=== PATIENT | female | born 1960 | race Caucasian/White ===

== ENCOUNTER 2023-10-14 10:37 | Inpatient (IN) | payer MEDICARE, SELFPAY ==
[2023-10-14] VITALS (29 sets, daily range): BP systolic 131–167; BP diastolic 59–90; PULSE 45–90; RESP 13–22; TEMP 36.5–37; O2SAT 85–100; BMI 37.0; BMI 36.9
--- NOTE | ~2023-10-14 | CT_ITS ---
Non-contrast CT scan of the Abdomen and Pelvis Clinical indication: Left flank pain Technique: 2.5 mm axial scans were obtained through the abdomen and pelvis without intravenous or or al contrast. Dose reduction technique was used on this scan by utilizing automated exposure control a nd iterative reconstruction technique. The dose-length product (DLP) was 1445.09 mGy-cm. Findings: Images through the lung bases reveal no abnormalities. There is no evidence of renal or ureteral calculi. The kidneys and the ureters are nondilated. Probable diffuse hepatic steatosis. Gallbladder absent. The spleen, pancreas, and adrenals appear nor mal. There are atherosclerotic calcifications of the aorta. . There is no evidence of bowel obstruction. Images through the pelvis were performed. There is no evidence of ascites or lymphadenopathy. Urinary bladder unremarkable. Status post hysterectomy. No pelvic mass seen. Impression: No acute abnormality seen. Probable diffuse hepatic steatosis. Status post cholecystectomy and hysterectomy. Reviewed, dictated and finalized at [facility]. Impression: No acute abnormality seen. Probable diffuse hepatic steatosis. Status post cholecystectomy and hysterectomy.
--- NOTE | ~2023-10-14 | CT_ITS ---
EXAMINATION: CTA abdomen pelvis DATE: 10/14/2023 14:48 INDICATION: Severe left flank pain; prior 10/14/[address] abdomen pelvis examination TECHNIQUE: Computed tomography (CT) of the abdomen and pelvis was performed with 100 CC Omnipaque 350 intravenous contrast. Automated exposure control and iterative reconstruction technique were employe d. Exam dose: 1393.32 mGy-cm total exam DLP. COMPARISON: None. FINDINGS: 6 x 7 mm right lower lobe pulmonary nodule. No prior imaging studies are available for mukesh flores. Differential diagnosis includes pulmonary granuloma, hamartoma, primary or metastatic pulmona ry malignancy. The lung bases are clear of consolidation. Cardiomegaly. No pericardial effusion. Small sliding hiatal hernia. The gallbladder is absent. No bile duct or pancreatic duct dilatation. Diffuse hepatic steatosis. No hepatic, splenic, pancreatic, and adrenal or renal space occupying mass lesion is noted. There is mild scarring at the posterior lateral inferior pole of the right kidney. No urinary tract calculus or hydroureteronephrosis. The urinary bladder is unremarkable. Status post hysterectomy. The appendix is not seen, likely due to appendectomy. No evidence of bowel obstruction or intraperitoneal free. Small fat-containing umbilical hernia. There is atherosclerotic calcification but no significant stenosis, dissection or aneurysm of the abd ominal aorta. The origins of the celiac and superior mesenteric artery are patent without atheroscler otic calcification or stenosis. There is mild atherosclerotic calcified plaque the origin of the left renal artery. There is mild calcified plaque but no significant stenosis or occlusion of the iliac, common femoral or proximal or femoral arteries. No intraperitoneal or retroperitoneal or pelvic mass lesion or adenopathy or ascites. Moderate thoracic and lumbar spondylosis; no suspicious osteolytic or osteoblastic lesions. IMPRESSION: 6 x 7 mm nonspecific right lower lobe noncalcified pulmonary nodule; differential diagno sis is given above Cardiomegaly Small sliding hiatal hernia Status post cholecystectomy and probable appendectomy Status post hysterectomy Focal scarring, or pole of right kidney Reviewed, dictated and finalized at [facility] Reviewed, dictated and finalized at [facility]. IMPRESSION: 6 x 7 mm nonspecific right lower lobe noncalcified pulmonary nodul e; differential diagnosis is given above Cardiomegaly Small sliding hiatal hernia Status post cholecystectomy and probable appendectomy Status post hysterectomy Focal scarring, or pole of right kidney
--- NOTE | ~2023-10-14 | CT_ITS ---
EXAMINATION: CT abdomen w con DATE: 10/18/2023 16:50 INDICATION: Epigastric abdominal pain. TECHNIQUE: Computed tomography (CT) of the abdomen was performed with 100 mL Omnipaque 350 intravenou s contrast. Automated exposure control and iterative reconstruction technique were employed. The dose -length product was 1026.19 mGy-cm. COMPARISON: CT abdomen and pelvis 10/14/2023 FINDINGS: The visualized portions of the lung bases demonstrate mild atelectasis. No pleural effusion . The heart size is normal. No pericardial effusion. The liver and spleen are normal. The gallbladder is absent. The pancreas and adrenal glands are normal. There is cortical thinning of the kidneys. Th ere are no dilated loops of bowel. The appendix is not visualized. There are no pathologically enlarg ed lymph nodes. There is no free intraperitoneal fluid. There is thoracolumbar dextroscoliosis and mo derate spondylosis. IMPRESSION: 1. No specific etiology for the patient's symptoms. Reviewed, dictated and finalized at [facility].
--- NOTE | 2023-10-14 11:10 | ED.BACK ---
HPI - Back Pain/Injury General Chief Complaint: Back Pain/Injury Stated Complaint: flank pain-N/V Time Seen by Provider: 10/14/23 10:54 History of Present Illness HPI Narrative: 63-year-old female presenting with left flank pain. States that she woke this morning with severe left flank pain that she has never had before. Associated with nausea and vomiting. No dysuria or hematuria. No abdominal pain. No numbness or tingling. No weakness. No further complaints. Related Data Home Medications Medication Instructions Recorded Confirmed amitriptyline 50 mg tablet 50 mg PO HS 10/14/23 10/14/23 promethazine 25 mg tablet 25 mg PO Q6H vomiting 10/14/23 10/14/23 Allergies Allergy/AdvReac Type Severity Reaction Status Date / Time oxycodone AdvReac Mild Vomiting Verified 10/14/23 21:16 Review of Systems Review of Systems: All systems reviewed & are unremarkable except as noted in HPI and below PMFSH Social History Social History Smoking status: Former smoker Additional smoking assessment comments: currently smokes [place] 2x days every day Alcohol intake: never Substance use: current Substance use type: marijuana Do You Feel Safe in your Home?: Yes Lack of Transportation: No Lack of Food: Never True Current Housing: I Have Housing Concerned About Future Housing: No Difficulty Paying Gas/Electric Bills: No Difficulty Paying for Meds: No Currently Unemployed: No Education: High School Diploma/GED Difficulty w/ Childcare or Family Care: No Spiritual care concerns: No Exam Narrative: GENERAL: Distress secondary to pain and nausea HEAD: Normocephalic, atraumatic. EYES: PERRLA and EOMI. ENT: Mucous membranes moist. NECK: Supple. CHEST: Clear to auscultation. No respiratory distress. HEART: Regular rate and rhythm ABDOMEN: Soft, nontender, nondistended; +CVA tenderness EXTREMITIES: Normal range of motion. SKIN: Warm, dry, no rash. NEURO: Alert and oriented x3. PSYCH: Normal mood and affect. Course Vital Signs Vital signs: Vital Signs Temperature 97.7 F 10/14/23 13:14 Respiratory Rate 19 10/14/23 13:14 Blood Pressure 167/89 H 10/14/23 13:14 Pulse Oximetry 97 10/14/23 13:14 Temperature 98.0 F 10/17/23 08:18 Pulse Rate 83 10/17/23 10:17 Respiratory Rate 16 10/17/23 10:17 Blood Pressure 118/88 10/17/23 08:18 Pulse Oximetry 95 10/17/23 10:17 Oxygen Delivery Room Air 10/17/23 10:17 MDM - Back Pain/Injury MDM Narrative Medical decision making narrative: 63-year-old female presenting with left flank pain. Blood work is significant abnormality. Lipase normal. CT without contrast shows no acute abnormalities. Patient continues to complain of severe left flank pain. CTA obtained to evaluate for vascular abnormalities. No acute abnormalities are noted to explain her symptoms. Patient has received 2 doses of Dilaudid and 2 doses of Zofran. She unfortunately continues to have vomiting despite the Zofran. She is unable to tolerate p.o. intake. Requires hospitalization, spoke with the hospitalist who has accepted her for admission. Differential Diagnosis Differential diagnosis: Likely lumbar radiculopathy, sciatica, renal colic, pyelonephritis and other Medical Records Attestation: I reviewed the patient's medical records. Lab Data Attestation: I reviewed the patient's lab results. 10/17/23 05:26 10/17/23 05:26 Labs: Lab Results 10/14/23 10/14/23 10/15/23 Range/Units 11:36 13:32 09:23 WBC 9.5 12.6 H (4.5-10.0) K/mm3 RBC 4.44 4.33 (4.2-5.4) M/mm3 Hgb 13.7 13.2 (12.0-15.0) g/dL Hct 41.0 39.3 (37.0-47.0) % MCV 92.3 90.8 (80-100) fl MCH 30.9 30.5 (26-34) pg MCHC 33.4 33.6 (32-36) g/dl RDW 13.7 13.7 (11.5-14.5) % Plt Count 298 321 (150-375) k/mm3 MPV 10.3 10.5 H (7.4-10.4) fl Immature Gran % (Auto)
[2023-10-14] MEDS: HYDROmorphone HCL INJ (*CRX) 1 MG/ML SYR IV PUSH ×2 (11:18→14:14)
[2023-10-14] MEDS: ONDANSETRON INJ 4 MG/2 ML VIAL IV PUSH ×3 (11:18→19:00)
[2023-10-14] MEDS: SODIUM CHLORIDE 0.9% IV 1,000 ML 999 ML IV CONT ×2 (11:18→14:13)
[2023-10-14 11:41] LABS: Basophils Percent Auto 0.4 % (0.2-1.2); Eosinophils Absolute Auto 0.1 K/mm3 (0-0.3); Eosinophils Percent Auto 1.4 % (0-4.4); Hemoglobin 13.7 g/dL (12.0-15.0); Immature Granulocyte Absolute 0.03 K/mm3 (0.00-0.031); Immature Granulocyte Percent A 0.3 % (0-0.5); Lymphocytes Absolute Auto 1.05 K/mm3 (0.9-3.2); Mean Corpuscular HGB Conc 33.4 g/dl (32-36); Mean Corpuscular Hemoglobin 30.9 pg (26-34); Mean Corpuscular Volume 92.3 fl (80-100); Mean Platelet Volume 10.3 fl (7.4-10.4); Monocytes Absolute Auto 0.6 K/mm3 (0.1-0.6); Monocytes Percent Auto 6.4 % (2.6-8.5); Neutrophils Absolute Auto 7.7 K/mm3 (1.3-6.7); Neutrophils Percent Auto 80.5 % (45.5-73.1); Platelet Count Result 298 k/mm3 (150-375); Red Blood Count 4.44 M/mm3 (4.2-5.4); Red Cell Distribution Width 13.7 % (11.5-14.5); White Blood Count 9.5 K/mm3 (4.5-10.0)
[2023-10-14 11:52] LABS: Alanine Aminotransferase 32 U/L (6-35); Albumin Level 4.5 g/dL (3.5-5.1); Alkaline Phosphatase 92 U/L (38-126); Anion Gap 13 mmol/L (4-12); Aspartate Amino Transferase 30 U/L (14-36); Bilirubin,Total 0.9 mg/dL (0.2-1.3); Blood Urea Nitrogen 18 mg/dL (7-17); Calcium 8.8 mg/dL (8.4-10.2); Carbon Dioxide 19 mmol/L (22-30); Chloride 109 mmol/L (98-107); Estimated CRCL calculation 73 ml/min; Estimated Glomerular Filt Rate > 60; Glucose 166 mg/dL (65-110); Lipase 94 U/L (23-300); Potassium 4.3 mmol/L (3.4-5.0); Sodium 141 mmol/L (137-145)
[2023-10-14 13:52] LABS: Add Urine Microscopic? YES; Appearance Urine Turbid (Clear); Bacteria Urine Rare /hpf; Bilirubin Urine Negative (Negative); Blood Urine Negative (Negative); Color Urine Yellow (Yellow); Glucose Urine UA 1+ mg/dL (Negative); Ketones Urine 1+ mg/dL (Negative); Leukocyte Esterase Ur Negative LEU/UL (Negative); Need Manual Microscopic Reviewed; Nitrate Urine Positive (Negative); Protein Urine 1+ mg/dL (Negative); Specific Grav Ur 1.029 (1.001-1.035); Squamous Epithelial Cell Urine Few /hpf (Few); WBC Urine 0-5 /hpf (0-3)
[2023-10-14] MEDS: KETOROLAC 30 MG/ML VIAL (*BKC) IV PUSH (19:00)
--- NOTE | 2023-10-14 19:19 | ECG_ITS ---
Test Date: 2023-10-14 20:13:48 Measurements Intervals Graham Rate: 63 P: -40 NE: 158 QRS: 30 QRSD: 89 T: 52 QT: 454 QTc: 468 Interpretive Statements SINUS RHYTHM WITH MARKED SINUS ARRHYTHMIA MINOR NONSPECIFIC T-WAVE ABNORMALITY BORDERLINE ECG No previous ECG available for comparison Electronically Signed On 10-15-2023 15:30:04 CDT by Shreyas Qureshi M.D.
[2023-10-14] MEDS: cefTRIAXone 2 GM/NS 100 ML 2 GM/100 ML BAG IVPB (19:38)
[2023-10-14] MEDS: METOCLOPRAMIDE HCL INJ 10 MG/2 ML VIAL IV PUSH (19:38)
[2023-10-14 20:57] LABS: Amphetamine Screen Urine Negative (Negative); Barbiturate Screen Urine Negative (Negative); Benzodiazepines Screen Urine Negative (Negative); Cannabinoid Screen Urine Positive (Negative); Cocaine Screen Urine Negative (Negative); Methadone Screen Urine Negative (Negative); Opiate Screen Urine Positive (Negative); Phencyclidine Screen Urine Negative (Negative)
--- NOTE | 2023-10-14 21:43 | PC.NURSE ---
Pt states that she smoke marijuana two times a day every day.
[2023-10-15 05:27] VITALS: BP 142/76; PULSE 73; RESP 16; TEMP 37.1; O2SAT 97
--- NOTE | 2023-10-15 08:35 | PM.IMHP ---
H&P: HPI History of Present Illness Date/Time: 10/15/23 08:35 Chief Complaint: Nausea vomiting Narrative: Patient is 63-year-old female who presented to the emergency department with intractable nausea and vomiting. Patient states symptoms began yesterday morning and she has been unable to tolerate any oral intake. Patient denied any past medical history however does report she has had this cyclic vomiting in the past ever since her has passed. Patient was positive for opiates and cannabis thus this likely cannabis induced hyperemesis. Patient was to a urinary tract infection CT abdomen showed no acute issues except for a pulmonary nodule which can be followed up in 3 months. Initial labs were unremarkable however follow-up labs showed hypokalemia 2.9 secondary to vomiting and dehydration. Patient was admitted to the medical unit for further evaluation treatment hyper emphasis any UTI. Review of Systems Review of Systems: All systems reviewed & are unremarkable except as noted in HPI and below PMFSH Social History Social History Smoking status: Former smoker Additional smoking assessment comments: currently smokes Flux 2x days every day Alcohol intake: never Substance use: current Substance use type: marijuana Do You Feel Safe in your Home?: Yes Lack of Transportation: No Lack of Food: Never True Current Housing: I Have Housing Concerned About Future Housing: No Difficulty Paying Gas/Electric Bills: No Difficulty Paying for Meds: No Currently Unemployed: No Education: High School Diploma/GED Difficulty w/ Childcare or Family Care: No Spiritual care concerns: No Meds Home Medications and Allergies Home Medications Medication Instructions Recorded Confirmed Type amitriptyline 50 mg tablet 50 mg PO HS 10/14/23 10/14/23 History promethazine 25 mg tablet 25 mg PO Q6H vomiting 10/14/23 10/14/23 History Allergies Allergy/AdvReac Type Severity Reaction Status Date / Time oxycodone AdvReac Mild Vomiting Verified 10/14/23 21:16 Vital Signs Vital Signs - 24 hr 10/14/23 13:14 10/14/23 19:58 10/14/23 20:45 Temperature 97.7 F Pulse Rate 76 90 Respiratory Rate 19 16 18 Blood Pressure 167/89 H 156/59 H 154/87 H Pulse Oximetry 97 95 97 Oxygen Delivery 10/14/23 13:20 10/14/23 13:30 10/14/23 13:31 Temperature Pulse Rate 67 74 77 Respiratory Rate 22 H 19 14 Blood Pressure 131/80 Pulse Oximetry 97 85 L 98 Oxygen Delivery 10/14/23 13:45 10/14/23 14:09 10/14/23 14:13 Temperature Pulse Rate Respiratory Rate 13 Blood Pressure 160/78 H Pulse Oximetry 97 92 Oxygen Delivery 10/14/23 14:15 10/14/23 14:16 10/14/23 14:30 Temperature Pulse Rate Respiratory Rate Blood Pressure 158/72 H Pulse Oximetry 94 94 85 L Oxygen Delivery 10/14/23 14:31 10/14/23 14:52 10/14/23 15:00 Temperature Pulse Rate 71 Respiratory Rate Blood Pressure 167/90 H Pulse Oximetry 85 L 98 94 Oxygen Delivery 10/14/23 15:18 10/14/23 15:23 10/14/23 15:30 Temperature Pulse Rate 67 45 L 57 L Respiratory Rate Blood Pressure 145/82 H Pulse Oximetry 96 99 98 Oxygen Delivery 10/14/23 15:45 10/14/23 16:00 10/14/23 16:15 Temperature Pulse Rate Respiratory Rate Blood Pressure Pulse Oximetry 97 95 100 Oxygen Delivery 10/14/23 19:47 10/14/23 20:00 10/14/23 20:01 Temperature Pulse Rate Respiratory Rate Blood Pressure 152/77 H Pulse Oximetry 100 97 96 Oxygen Delivery 10/14/23 20:15 10/14/23 20:16 10/14/23 20:30 Temperature Pulse Rate Respiratory Rate Blood Pressure 147/76 H Pulse Oximetry 100 100 100 Oxygen Delivery 10/14/23 20:31 10/14/23 21:37 10/14/23 21:42 Temperature 98.6 F Pulse Rate 66 Respiratory Rate 18 Blood Pressure 154/87 H 156/75 H Pulse Oximetry 97 98
[2023-10-15] MEDS: ONDANSETRON INJ 4 MG/2 ML VIAL IV PUSH (09:10)
[2023-10-15] MEDS: PANTOPRAZOLE SODIUM IV 40 MG VIAL IV PUSH ×2 (09:10→21:20)
[2023-10-15] MEDS: ENOXAPARIN 40 MG/0.4 ML SYRINGE SUB-Q (09:11)
[2023-10-15] MEDS: SODIUM CHLORIDE 0.9% IV 1,000 ML 100 ML IV CONT (09:11)
[2023-10-15 09:42] LABS: Basophils Percent Auto 0.1 % (0.2-1.2); Hematocrit 39.3 % (37.0-47.0); Hemoglobin 13.2 g/dL (12.0-15.0); Immature Granulocyte Absolute 0.07 K/mm3 (0.00-0.031); Immature Granulocyte Percent A 0.6 % (0-0.5); Lymphocytes Absolute Auto 0.89 K/mm3 (0.9-3.2); Lymphocytes Percent Auto 7.1 % (18.3-44.2); Mean Corpuscular HGB Conc 33.6 g/dl (32-36); Mean Corpuscular Hemoglobin 30.5 pg (26-34); Mean Corpuscular Volume 90.8 fl (80-100); Mean Platelet Volume 10.5 fl (7.4-10.4); Monocytes Absolute Auto 0.8 K/mm3 (0.1-0.6); Monocytes Percent Auto 6.4 % (2.6-8.5); Neutrophils Absolute Auto 10.8 K/mm3 (1.3-6.7); Neutrophils Percent Auto 85.8 % (45.5-73.1); Platelet Count Result 321 k/mm3 (150-375); Red Blood Count 4.33 M/mm3 (4.2-5.4); Red Cell Distribution Width 13.7 % (11.5-14.5); White Blood Count 12.6 K/mm3 (4.5-10.0)
[2023-10-15 09:52] LABS: Alanine Aminotransferase 38 U/L (6-35); Albumin Level 4.6 g/dL (3.5-5.1); Alkaline Phosphatase 101 U/L (38-126); Anion Gap 11 mmol/L (4-12); Aspartate Amino Transferase 31 U/L (14-36); Bilirubin,Total 0.6 mg/dL (0.2-1.3); Blood Urea Nitrogen 19 mg/dL (7-17); Calcium 9.1 mg/dL (8.4-10.2); Carbon Dioxide 32 mmol/L (22-30); Chloride 97 mmol/L (98-107); Estimated CRCL calculation 74 ml/min; Estimated Glomerular Filt Rate > 60; Glucose 149 mg/dL (65-110); Potassium 2.9 mmol/L (3.4-5.0); Sodium 140 mmol/L (137-145)
[2023-10-15] MEDS: POTASSIUM CHLORIDE INJ 40 MEQ in SODIUM CHLORIDE 0.9% IV 500 ML 90 MEQ IVPB (10:54)
[2023-10-15] MEDS: diphenhydrAMINE HCl INJ 50 MG/ML VIAL IV PUSH (10:55)
[2023-10-15] MEDS: HALOPERIDOL LACTATE 5 MG/ML VIAL 2.5 MG IV PUSH (10:55)
[2023-10-15 10:59] LABS: Magnesium 1.9 mg/dL (1.6-2.3)
[2023-10-15 14:00] VITALS: BP 148/76; PULSE 78; RESP 16; TEMP 36.4; O2SAT 95
[2023-10-15] MEDS: KCL 40 MEQ/0.9% SOD CHL 1,000 ML 100 ML IV CONT (16:43)
[2023-10-15] MEDS: ACETAMINOPHEN 325 MG TABLET 650 MG PO ×2 (17:58→22:01)
[2023-10-15 20:34] VITALS: BP 122/65; PULSE 73; RESP 16; TEMP 36.8; O2SAT 93
[2023-10-15] MEDS: AMITRIPTYLINE HCL 25 MG TABLET 50 MG PO (21:21)
[2023-10-15] MEDS: ONDANSETRON INJ 4 MG/2 ML VIAL 8 MG IV PUSH (22:02)
[2023-10-16 05:06] VITALS: BP 164/84; PULSE 68; RESP 18; TEMP 36.1; O2SAT 93
[2023-10-16] MEDS: LORazepam INJ (*CRX) 2 MG/ML VIAL 1 MG IV PUSH (05:28)
[2023-10-16 05:51] LABS: Basophils Percent Auto 0.2 % (0.2-1.2); Eosinophils Percent Auto 0.1 % (0-4.4); Hematocrit 38.9 % (37.0-47.0); Hemoglobin 13.1 g/dL (12.0-15.0); Immature Granulocyte Absolute 0.13 K/mm3 (0.00-0.031); Immature Granulocyte Percent A 1.1 % (0-0.5); Lymphocytes Absolute Auto 1.17 K/mm3 (0.9-3.2); Lymphocytes Percent Auto 10.1 % (18.3-44.2); Mean Corpuscular HGB Conc 33.7 g/dl (32-36); Mean Corpuscular Hemoglobin 31.1 pg (26-34); Mean Corpuscular Volume 92.4 fl (80-100); Mean Platelet Volume 10.6 fl (7.4-10.4); Monocytes Absolute Auto 0.9 K/mm3 (0.1-0.6); Monocytes Percent Auto 8.1 % (2.6-8.5); Neutrophils Absolute Auto 9.3 K/mm3 (1.3-6.7); Neutrophils Percent Auto 80.4 % (45.5-73.1); Platelet Count Result 268 k/mm3 (150-375); Red Blood Count 4.21 M/mm3 (4.2-5.4); Red Cell Distribution Width 13.8 % (11.5-14.5); White Blood Count 11.6 K/mm3 (4.5-10.0)
[2023-10-16 06:10] LABS: Alanine Aminotransferase 44 U/L (6-35); Albumin Level 4.1 g/dL (3.5-5.1); Alkaline Phosphatase 84 U/L (38-126); Anion Gap 10 mmol/L (4-12); Aspartate Amino Transferase 39 U/L (14-36); Bilirubin,Total 0.6 mg/dL (0.2-1.3); Blood Urea Nitrogen 13 mg/dL (7-17); Calcium 8.7 mg/dL (8.4-10.2); Carbon Dioxide 27 mmol/L (22-30); Chloride 97 mmol/L (98-107); Estimated CRCL calculation 84 ml/min; Estimated Glomerular Filt Rate > 60; Glucose 141 mg/dL (65-110); Potassium 3.3 mmol/L (3.4-5.0); Sodium 134 mmol/L (137-145)
[2023-10-16] MEDS: ENOXAPARIN 40 MG/0.4 ML SYRINGE SUB-Q (08:44)
[2023-10-16] MEDS: amLODIPine BESYLATE 5 MG TABLET PO (08:44)
[2023-10-16] MEDS: ACETAMINOPHEN 325 MG TABLET 650 MG PO (08:44)
[2023-10-16] MEDS: PANTOPRAZOLE SODIUM IV 40 MG VIAL IV PUSH ×2 (08:44→21:01)
[2023-10-16] MEDS: POTASSIUM CHLORIDE INJ 40 MEQ in SODIUM CHLORIDE 0.9% IV 500 ML 130 MEQ IVPB (08:45)
--- NOTE | 2023-10-16 12:13 | P.PNIM_ITS ---
Progress Note: A&P Assessment and Plan (1) Cannabis hyperemesis syndrome concurrent with and due to cannabis abuse: Code(s): F12.188 - Cannabis abuse with other cannabis-induced disorder Status: Acute (2) UTI (urinary tract infection): Code(s): N39.0 - Urinary tract infection, site not specified Status: Acute (3) Lung nodule seen on imaging study: Code(s): R91.1 - Solitary pulmonary nodule Status: Acute (4) Hypokalemia: Code(s): E87.6 - Hypokalemia Status: Acute (5) Sciatic leg pain: Code(s): M54.30 - Sciatica, unspecified side Status: Acute Plan Hyperemesis cannabis induced * +cannabis smokes marijuana every day * IV Fluids * Antiemetics Zofran * Ativan PRN * Haldol x 1 * CT scan showing small hiatal hernia no other acute issues * Will advance diet as tolerated * Low-dose Haldol * Monitor electrolytes keep K >4.0 mag >2.0 * And her itch marijuana cessation UTI * Urine cultures pending * Continue IV hydration. * Monitor CBC, CMP watch for sepsis. * Monitor vital signs. * Rocephin * CT with no obstructive uropathy and pyelonephritis Lung Nodule * 6 x 7 mm RT lower lobe nodule * former tobacco smoker * marijuana smoker * recommend f/U CT scan 3-months Hypokalemia * 2.9 * Replenished * BMP follow-up * keep >4.0 Sciatic left leg pain * Flexeril p.r.n. * Encourage ambulation Code status: Full code per patient DVT prophylaxis: Lovenox Stress ulcer prophylaxis: Protonix 40 daily PT/OT notes: Ambulatory Disposition: Patient was admitted to the medical unit with cannabis induced hyperemesis as urinary tract infection will continue with current treatment plan and advance diet as tolerated continue to replenish electrolytes Time Spent With Patient Time with patient: 15 - 25 minutes Subjective Date/time seen: 10/16/23 12:13 Interval history: Admission: Narrative: Patient is 63-year-old female who presented to the emergency department with intractable nausea and vomiting. Patient states symptoms began yesterday morning and she has been unable to tolerate any oral intake. Patient denied any past medical history however does report she has had this cyclic vomiting in the past ever since her has passed. Patient was positive for opiates and cannabis thus this likely cannabis induced hyperemesis. Patient was to a urinary tract infection CT abdomen showed no acute issues except for a pulmonary nodule which can be followed up in 3 months. Initial labs were unremarkable however follow-up labs showed hypokalemia 2.9 secondary to vomiting and dehydration. Patient was admitted to the medical unit for further evaluation treatment hyper emphasis any UTI. 10/16/2023: Patient reports overall improvement to her N/V, reports severe sharp pain that extends from mid left gluteus to LLE likely compression of her sciatic nerve add Flexeril. Will advance patient's diet if she can tolerate oral intake overnight can likely discharge home in the morning. Review of Systems Review of Systems: All systems reviewed & are unremarkable except as noted in HPI and below Exam Narrative: Physical Exam: * GENERAL: Pleasant female Alert and oriented x 3. * EYES: EOMI. No scleral icterus. PERRLA. * HEENT: Moist mucous membranes. * LUNGS: Clear to auscultation bilaterally. No accessory muscle use. * CARDIOVASCULAR: Regular rate and rhythm.
--- NOTE | 2023-10-16 12:13 | PM.IMPN ---
Progress Note: A&P Assessment and Plan (1) Cannabis hyperemesis syndrome concurrent with and due to cannabis abuse: Code(s): F12.188 - Cannabis abuse with other cannabis-induced disorder Status: Acute (2) UTI (urinary tract infection): Code(s): N39.0 - Urinary tract infection, site not specified Status: Acute (3) Lung nodule seen on imaging study: Code(s): R91.1 - Solitary pulmonary nodule Status: Acute (4) Hypokalemia: Code(s): E87.6 - Hypokalemia Status: Acute (5) Sciatic leg pain: Code(s): M54.30 - Sciatica, unspecified side Status: Acute Plan Hyperemesis cannabis induced +cannabis smokes marijuana every day IV Fluids Antiemetics Zofran Ativan PRN Haldol x 1 CT scan showing small hiatal hernia no other acute issues Will advance diet as tolerated Low-dose Haldol Monitor electrolytes keep K >4.0 mag >2.0 And her itch marijuana cessation UTI Urine cultures pending Continue IV hydration. Monitor CBC, CMP watch for sepsis. Monitor vital signs. Rocephin CT with no obstructive uropathy and pyelonephritis Lung Nodule 6 x 7 mm RT lower lobe nodule former tobacco smoker marijuana smoker recommend f/U CT scan 3-months Hypokalemia 2.9 Replenished BMP follow-up keep >4.0 Sciatic left leg pain Flexeril p.r.n. Encourage ambulation Code status: Full code per patient DVT prophylaxis: Lovenox Stress ulcer prophylaxis: Protonix 40 daily PT/OT notes: Ambulatory Disposition: Patient was admitted to the medical unit with cannabis induced hyperemesis as urinary tract infection will continue with current treatment plan and advance diet as tolerated continue to replenish electrolytes Time Spent With Patient Time with patient: 15 - 25 minutes Subjective Date/time seen: 10/16/23 12:13 Interval history: Admission: Narrative: Patient is 63-year-old female who presented to the emergency department with intractable nausea and vomiting. Patient states symptoms began yesterday morning and she has been unable to tolerate any oral intake. Patient denied any past medical history however does report she has had this cyclic vomiting in the past ever since her has passed. Patient was positive for opiates and cannabis thus this likely cannabis induced hyperemesis. Patient was to a urinary tract infection CT abdomen showed no acute issues except for a pulmonary nodule which can be followed up in 3 months. Initial labs were unremarkable however follow-up labs showed hypokalemia 2.9 secondary to vomiting and dehydration. Patient was admitted to the medical unit for further evaluation treatment hyper emphasis any UTI. 10/16/2023: Patient reports overall improvement to her N/V, reports severe sharp pain that extends from mid left gluteus to LLE likely compression of her sciatic nerve add Flexeril. Will advance patient's diet if she can tolerate oral intake overnight can likely discharge home in the morning. Review of Systems Review of Systems: All systems reviewed & are unremarkable except as noted in HPI and below Exam Narrative: Physical Exam: GENERAL: Pleasant female Alert and oriented x 3. EYES: EOMI. No scleral icterus. PERRLA. HEENT: Moist mucous membranes. LUNGS: Clear to auscultation bilaterally. No accessory muscle use. CARDIOVASCULAR: Regular rate and rhythm. No murmur. No JVD. S1-S2 ABDOMEN: Soft, mild tenderness and non-distended. No palpable masses. EXTREMITIES: No edema. Non-tender SKIN: No rashes or lesions. Skin warm, dry. NEUROLOGIC: No focal neurological deficits. CN II-XII grossly intact PSYCHIATRIC: Appropriate mood and affect. Good judgement and insight. No visual or auditory hallucinations. No suicidal or homicidal ideation. Objective Data Vital Signs Vital Signs: Vital Signs - 24 hr 10/15/23 14:00 10/15/23 20:34 10/15/23 21:20 Temperature 97.6
[2023-10-16] MEDS: CYCLOBENZAPRINE HCL 10 MG TABLET PO ×2 (12:30→21:00)
[2023-10-16 14:00] VITALS: BP 135/75; PULSE 75; RESP 16; TEMP 37; O2SAT 94
[2023-10-16] MEDS: HYDROcodone/acetaminophen (*CRX) 5-325 MG TABLET 1 TAB PO ×2 (15:25→21:00)
[2023-10-16 20:40] VITALS: BP 161/92; PULSE 75; RESP 20; TEMP 37.6; O2SAT 95
[2023-10-16] MEDS: AMITRIPTYLINE HCL 25 MG TABLET 50 MG PO (21:01)
[2023-10-16] MEDS: ONDANSETRON INJ 4 MG/2 ML VIAL 8 MG IV PUSH (21:01)
[2023-10-16] MEDS: KCL 40 MEQ/0.9% SOD CHL 1,000 ML 100 ML IV CONT (22:54)
[2023-10-17] VITALS (30 sets, daily range): BP systolic 111–148; BP diastolic 67–117; PULSE 67–155; RESP 14–23; TEMP 36.4–37.1; O2SAT 88–100
--- NOTE | 2023-10-17 | ECHO_ITS ---
Patient Info Name: Rebeka Edouard Age: 63 years : 1960 Gender: Female Ht: 66 in Wt: 228 lbs BSA: 2.24 m2 HR: 83 bpm BP: 118 / 88 mmHg Heart Rhythm: Tachycardia Technical Quality: Fair Exam Date: 10/17/2023 12:47 PM Exam Location: Echo Lab Patient Status: Inpatient Admit Date: 10/15/2023 Staff Ordering Physician: Cristobal Harp MD (jesus/edwin) Flight Purser: Jane Connelly RDCS Attending Provider: Joann England APRN Referring Physician: Loyd GUADALUPE; Exam Type: CA echo dop color flow w con Study Info Indications R00.0 - Tachycardia, unspecified Complete two-dimensional, color flow and Doppler transthoracic echocardiogram is performed with contrast to opacify the left ventricle and to improve the deliniation of the left ventricle endocardial borders. Contrast/Agitated Saline Contrast/Ag. Saline: Definity Amount: 3.00 ml Administered By: Jane Connelly RDCS Existing IV Access: Yes IV Access Condition: patent with no signs of infiltration Summary 1. Left ventricular chamber dimension is normal. 2. Left ventricular systolic function is normal, estimated at 65-70%. 3. There is mildly increased left ventricular wall thickness. 4. Right ventricular systolic function is normal. 5. There is mild mitral valve regurgitation. Left Ventricle Left ventricular chamber dimension is normal. Left ventricular systolic function is normal, estimated at 65-70%. There is mildly increased left ventricular wall thickness. Right Ventricle Right ventricular chamber dimension is normal. Right ventricular systolic function is normal. Left Atria Left atrial chamber dimension is normal. Right Atria Right atrial chamber dimension is normal. Atrial Septum Intact interatrial septum visualized by color flow imaging. Aortic Valve There is no aortic valve stenosis. There is no aortic valve regurgitation. There is mild aortic valve calcification. Pulmonic Valve The pulmonic valve is not well visualized. There is trace pulmonic regurgitation. Mitral Valve There is mild mitral valve regurgitation. The mitral valve annulus is mildly calcified. Tricuspid Valve There is trace tricuspid valve regurgitation. Pericardium/Pleural There is trivial anterior pericardial effusion. Inferior Vena Cava Normal inferior vena cava with <50% collapse upon inspiration consistent with elevated right atrial pressure, 8 mmHg. Aorta The aortic root size at the sinus of Valsalva is normal. Left Ventricular Outflow Tract Name Value Normal LVOT 2D LVOT Diameter 2.04 cm LVOT Doppler LVOT Peak Gradient 3 mmHg LVOT Mean Gradient 1 mmHg LVOT VTI 8.70 cm LVOT VTI/AV VTI Ratio 0.76 LVOT Stroke Volume 28.49 ml LVOT CO 4.26 l/min LVOT CI 1.90 L/min/m2 Mitral Valve Name Value Normal
--- NOTE | 2023-10-17 04:39 | ECG_ITS ---
Test Date: 2023-10-17 04:47:53 Measurements Intervals [place] Rate: 151 P: 0 MS: 0 QRS: 7 QRSD: 78 T: 23 QT: 270 QTc: 428 Interpretive Statements SUPRAVENTRICULAR TACHYCARDIA, SUSPECT ATRIAL FLUTTER ST DEPRESSION, CONSIDER SUBENDOCARDIAL INJURY [0.1+ mV ST DEPRESSION] Compared to ECG 10/14/2023 20:13:48 ATRIAL FLUTTER NOW PRESENT Electronically Signed On 10-17-2023 17:10:53 CDT by Cristobal Harp M.D.
[2023-10-17] MEDS: ADENOSINE IV SOLN 6 MG/2 ML VIAL IV PUSH (05:10)
[2023-10-17] MEDS: ADENOSINE IV SOLN 6 MG/2 ML VIAL 12 MG IV PUSH (05:15)
[2023-10-17] MEDS: METOPROLOL TARTRATE INJ 5 MG/5 ML VIAL IV PUSH (05:25)
[2023-10-17 05:34] LABS: Basophils Percent Auto 0.3 % (0.2-1.2); Eosinophils Percent Auto 0.1 % (0-4.4); Hematocrit 43.1 % (37.0-47.0); Hemoglobin 14.2 g/dL (12.0-15.0); Immature Granulocyte Absolute 0.08 K/mm3 (0.00-0.031); Immature Granulocyte Percent A 0.5 % (0-0.5); Lymphocytes Absolute Auto 1.65 K/mm3 (0.9-3.2); Lymphocytes Percent Auto 11.3 % (18.3-44.2); Mean Corpuscular HGB Conc 32.9 g/dl (32-36); Mean Corpuscular Hemoglobin 30.5 pg (26-34); Mean Corpuscular Volume 92.7 fl (80-100); Mean Platelet Volume 10.5 fl (7.4-10.4); Monocytes Absolute Auto 1.4 K/mm3 (0.1-0.6); Monocytes Percent Auto 9.7 % (2.6-8.5); Neutrophils Absolute Auto 11.4 K/mm3 (1.3-6.7); Neutrophils Percent Auto 78.1 % (45.5-73.1); Platelet Count Result 307 k/mm3 (150-375); Red Blood Count 4.65 M/mm3 (4.2-5.4); Red Cell Distribution Width 13.5 % (11.5-14.5); White Blood Count 14.6 K/mm3 (4.5-10.0)
--- NOTE | 2023-10-17 05:39 | PC.NURSE ---
0533 received report from LOLIS Briones. Patient transferred to ICU 5 from [facility].
[2023-10-17 05:43] LABS: Glucose Point of Care 139 mg/dl (65-105)
[2023-10-17 05:53] LABS: Alanine Aminotransferase 48 U/L (6-35); Albumin Level 4.2 g/dL (3.5-5.1); Alkaline Phosphatase 88 U/L (38-126); Anion Gap 10 mmol/L (4-12); Anion Gap 11 mmol/L (4-12); Aspartate Amino Transferase 33 U/L (14-36); Bilirubin,Total 0.7 mg/dL (0.2-1.3); Blood Urea Nitrogen 8 mg/dL (7-17); Calcium 8.9 mg/dL (8.4-10.2); Calcium 9.1 mg/dL (8.4-10.2); Carbon Dioxide 23 mmol/L (22-30); Carbon Dioxide 26 mmol/L (22-30); Chloride 100 mmol/L (98-107); Chloride 99 mmol/L (98-107); Estimated CRCL calculation 84 ml/min; Estimated Glomerular Filt Rate > 60; Glucose 136 mg/dL (65-110); Glucose 137 mg/dL (65-110); Magnesium 1.9 mg/dL (1.6-2.3); Potassium 3.7 mmol/L (3.4-5.0); Sodium 133 mmol/L (137-145); Sodium 136 mmol/L (137-145)
[2023-10-17 06:02] LABS: NT Pro B Type Natriuretic Pept 3300 pg/mL (19.9-100)
[2023-10-17 06:12] LABS: Troponin I 0.067 ng/mL (0.000-0.034)
[2023-10-17 06:37] LABS: Hematocrit 42.1 % (37.0-47.0); Hemoglobin 14.2 g/dL (12.0-15.0); Mean Corpuscular HGB Conc 33.7 g/dl (32-36); Mean Corpuscular Hemoglobin 31.2 pg (26-34); Mean Corpuscular Volume 92.5 fl (80-100); Mean Platelet Volume 11.3 fl (7.4-10.4); Platelet Count Result 288 k/mm3 (150-375); Red Blood Count 4.55 M/mm3 (4.2-5.4); Red Cell Distribution Width 13.5 % (11.5-14.5); White Blood Count 14.1 K/mm3 (4.5-10.0)
--- NOTE | 2023-10-17 06:37 | P.PNCROSS_ITS ---
Event Note Event Note Event Note: At around 5 AM nurse reports HR 150 on routine vitals when she was previously 6 0s. She has no history of afib or SVT. EKG was concerning for SVT however rate was only 150. The rhythm appeared regular. Patient had palpitations. Rapid response was called. We attempted vagal maneuvers and carotid massage with no improvement. We attempted adenosine 6mg, 12mg with no improvement. Then we tried metoprolol 5mg IVP. Patient was then transferred to IMU status. Throughout these interventions patient only felt palpitations and was normotensive. Will start diltiazem drip. Perhaps this is more of an acute afib with RVR as opposed to SVT. With no history of arrhythmia this will need to be further investigated.
[2023-10-17] MEDS: dilTIAZem HCl INJ 25 MG/5 ML VIAL 15 MG IV PUSH (06:54)
[2023-10-17] MEDS: dilTIAZem 100 MG/100 ML 100 MG/100 ML BAG 10 MG IV CONT (06:55)
--- NOTE | 2023-10-17 06:56 | PC.NURSE ---
This patient, Rebeka Edouard, was transferred to ICU-5 on 10/17/23 at 0533. Personal belongings sent with patient. Report given to LOLIS Vásquez. Appropriate documentation sent with patient. Rapid response called on patient at {[phone]}. PCT was making morning rounds and getting routine vital signs. Despite having no symptoms, pt's heart rate was 148 and sustaining. Pt denied anxiety, pain, and all other discomfort. Blood pressure and oxygen stable. Dr. Zuluaga on the floor and gave verbal orders for a STAT EKG. EKG showing SVT was completed and handed to doctor. Staff on floor were unsure if it is appropriate to administer Adenosine on this floor, and after being unable to reach Explosives Operator, the decision to call a rapid response was made quickly. Patient asymptomatic, but now beginning to state she feels her heart fluttering. Glucose, vitals, and labs obtained and documented as necessary. Adenosine administered x2. Pt's heart rate remained greater than 145. Orders for transfer to ICU-5 placed.
[2023-10-17] MEDS: ENOXAPARIN 40 MG/0.4 ML SYRINGE SUB-Q (08:10)
[2023-10-17] MEDS: amLODIPine BESYLATE 5 MG TABLET PO (08:10)
[2023-10-17] MEDS: PANTOPRAZOLE SODIUM IV 40 MG VIAL IV PUSH ×2 (08:10→21:01)
[2023-10-17] MEDS: ONDANSETRON INJ 4 MG/2 ML VIAL 8 MG IV PUSH ×2 (09:44→21:48)
[2023-10-17] MEDS: KCL 40 MEQ/0.9% SOD CHL 1,000 ML 100 ML IV CONT (10:42)
[2023-10-17] MEDS: LORazepam INJ (*CRX) 2 MG/ML VIAL 1 MG IV PUSH (10:59)
--- NOTE | 2023-10-17 11:50 | PM.CNCAR ---
Assessment and Plan Assessment and plan (1) Atrial flutter with rapid ventricular response: Code(s): I48.92 - Unspecified atrial flutter Status: Acute Assessment and Plan: Review of EKGs and tele shows most likely atrial flutter with RVR. Will stop Diltiazem drip and start IV Amiodarone drip. TSH level is normal. Initially she was quite hypokalemic on admission at 2.9, however, this is now improved to 3.7. Please keep potassium > 4. Mag > 2 Echo ordered and pending. [id number] of 2, therefore, does not need long-term anticoagulation. Can defer anticoagulation until [id number] score becomes 3. (2) Cannabis hyperemesis syndrome concurrent with and due to cannabis abuse: Code(s): F12.188 - Cannabis abuse with other cannabis-induced disorder Status: Acute Assessment and Plan: Management as per primary team. (3) Hypokalemia: Code(s): E87.6 - Hypokalemia Status: Acute Assessment and Plan: Initially she was quite hypokalemic on admission at 2.9, however, this is now improved to 3.7. Please keep potassium > 4. Mag > 2 Plan Recommendations and plan discussed with Hospitalist. History of Present Illness History of Present Illness Consult date/time: 10/17/23 11:50 Requesting physician: Robert Zuluaga DO Consult reason: Other (SVT) Reason For Visit: Intractable vomiting Narrative: This is a 63 year old female who presented with intractable nausea and vomiting. 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 Overnight, she went into SVT with heart rates in the 150s. They attempted vagal maneuvers and carotid massage with no improvement. They attempted Adenosine 6mg followed by 12mg with no improvement. Metoprolol 5mg IV was given. Then started on Diltiazem drip. This morning, patient remains in the 150s. She does feel a rapid heart beat but is otherwise resting comfortably. No prior cardiac history. Review of Systems Review of Systems: All systems reviewed & are unremarkable except as noted in HPI and below (HPI) [facility] Social History Social History Smoking status: Former smoker Additional smoking assessment comments: currently smokes [employer] 2x days every day Alcohol intake: never Substance use: current Substance use type: marijuana Do You Feel Safe in your Home?: Yes Lack of Transportation: No Lack of Food: Never True Current Housing: I Have Housing Concerned About Future Housing: No Difficulty Paying Gas/Electric Bills: No Difficulty Paying for Meds: No Currently Unemployed: No Education: High School Diploma/GED Difficulty w/ Childcare or Family Care: No Spiritual care concerns: No Meds Home Medications and Allergies Home Medications Medication Instructions Recorded Confirmed Type amitriptyline 50 mg tablet 50 mg PO HS 10/14/23 10/14/23 History promethazine 25 mg tablet 25 mg PO Q6H vomiting 10/14/23 10/14/23 History Allergies Allergy/AdvReac Type Severity Reaction Status Date / Time oxycodone AdvReac Mild Vomiting Verified 10/14/23 21:16 Vital Signs Vital Signs - 24 hr 10/16/23 14:00 10/16/23 20:40 10/16/23 20:00 Temperature 37.0 C 37.6 C H Pulse Rate 75 75 Respiratory Rate 16 20 Blood Pressure 135/75 161/92 H Pulse Oximetry 94 95 Oxygen Delivery Room Air 10/17/23 05:25 10/17/23 05:25 10/17/23 05:40 Temperature Pulse Rate 149 H 149 H 147 H Respiratory Rate 21 H Blood Pressure 123/75 111/83 Pulse Oximetry 95 Oxygen Delivery 10/17/23 04:30 10/17/23 05:45 10/17/23 06:55 Temperature 36.4 C Pulse Rate 147 H 148 H 150 H Respiratory Rate 20 16 Blood Pressure 131/91 H 120/88 Pulse Oximetry 92 95 Oxygen Delivery Room Air 10/17/23 06:00 10/17/23 05:00 10/17/23 05:01 Temperature Pulse Rate 148 H 150 H Respiratory Rate 22 H 20 Blood Pressure 127/95 H 136/101 H Pulse Oximetry 93 97 Ox
[2023-10-17] MEDS: AMIODARONE 150 MG/D5W 100 ML 150 MG/100 ML BAG 600 MG IV CONT (12:02)
[2023-10-17] MEDS: AMIODARONE 360 MG/D5W 200 ML 360 MG/200 ML BAG 33.33 MG IV CONT (12:21)
[2023-10-17] MEDS: PERFLUTREN LIPID MICROSPHERES 1.5 ML VIAL DILUTED TO 10 ML TOTAL VOLUME IV PUSH (13:11)
--- NOTE | 2023-10-17 13:38 | P.PNIM_ITS ---
Progress Note: A&P Assessment and Plan (1) Cannabis hyperemesis syndrome concurrent with and due to cannabis abuse: Code(s): F12.188 - Cannabis abuse with other cannabis-induced disorder Status: Acute Assessment and Plan: * +cannabis smokes marijuana every day * IV Fluids * Antiemetics Zofran * Ativan PRN * CT scan of abdomen reviwed showing small hiatal hernia no other acute issues * Will advance diet as tolerated * Low-dose Haldol * Monitor electrolytes keep K >4.0 mag >2.0 * add iv protonix (2) UTI (urinary tract infection): Code(s): N39.0 - Urinary tract infection, site not specified Status: Acute Assessment and Plan: * Continue IV hydration. * await UC * Rocephin * CT with no obstructive uropathy and pyelonephritis (3) Lung nodule seen on imaging study: Code(s): R91.1 - Solitary pulmonary nodule Status: Acute Assessment and Plan: * 6 x 7 mm RT lower lobe nodule * former tobacco smoker * marijuana smoker * recommend f/U CT scan 3-months (4) Hypokalemia: Code(s): E87.6 - Hypokalemia Status: Acute Assessment and Plan: * 2.9 * Replenished * BMP follow-up * keep >4.0 (5) Sciatic leg pain: Code(s): M54.30 - Sciatica, unspecified side Status: Acute Assessment and Plan: * Flexeril p.r.n. * Encourage ambulation (6) Atrial flutter with rapid ventricular response: Code(s): I48.92 - Unspecified atrial flutter Status: Acute Assessment and Plan: pt add adenosine 12mgyesterday another 6 mg orderred cardiology consulted anxiolytics ordered ice orderd Subjective Date/time seen: 10/17/23 13:38 Interval history: Patient is 63-year-old female who presented to the emergency department with intractable nausea and vomiting. Patient states symptoms began yesterday mor saleem and she has been unable to tolerate any oral intake. Patient denied any past medical history however does report she has had this cyclic vomiting in the past ever since her has passed. Patient was positive for opiates and cannabis thus this likely cannabis induced hyperemesis. Patient was to a urinary tract infection CT abdomen showed no acute issues except for a pulmonary nodule which can be followed up in 3 months. Initial labs were unremarkable however follow-up labs showed hypokalemia 2.9 secondary to vomiting and dehydration. Patient was admitted to the medical unit for further evaluation treatment hyper emphasis any UTI. Pt recovering from nausea and vomiting pt takes opiates and cannabis on regular basis Pt has a Ecoli UTI Pt is in SVT few episode last night today also ST in 150s Review of Systems Review of Systems: heart palpitation, nausea abdominal pains Exam Narrative: * GENERAL: nauseated * EYES: EOMI. No scleral icterus. PERRLA. * HEENT: Moist mucous membranes. * LUNGS: Clear to auscultation bilaterally. No accessory muscle use. * CARDIOVASCULAR: 150s hear rate * ABDOMEN: Soft, mild tenderness and non-distended. No palpable masses. * EXTREMITIES: No edema. Non-tender * SKIN: No rashes or lesions. Skin warm, dry. * NEUROLOGIC: No focal neurological deficits. CN II-XII grossly intact Objective Data Vital Signs Vital Signs: Vital Signs - 24 hr 10/16/23 14:00 10/16/23 20:40 10/16/23 20:00 Temperature 37.0 C 37.6 C H
--- NOTE | 2023-10-17 13:38 | PM.IMPN ---
Progress Note: A&P Assessment and Plan (1) Cannabis hyperemesis syndrome concurrent with and due to cannabis abuse: Code(s): F12.188 - Cannabis abuse with other cannabis-induced disorder Status: Acute Assessment and Plan: +cannabis smokes marijuana every day IV Fluids Antiemetics Zofran Ativan PRN CT scan of abdomen reviwed showing small hiatal hernia no other acute issues Will advance diet as tolerated Low-dose Haldol Monitor electrolytes keep K >4.0 mag >2.0 add iv protonix (2) UTI (urinary tract infection): Code(s): N39.0 - Urinary tract infection, site not specified Status: Acute Assessment and Plan: Continue IV hydration. await Rocephin CT with no obstructive uropathy and pyelonephritis (3) Lung nodule seen on imaging study: Code(s): R91.1 - Solitary pulmonary nodule Status: Acute Assessment and Plan: 6 x 7 mm RT lower lobe nodule former tobacco smoker marijuana smoker recommend f/U CT scan 3-months (4) Hypokalemia: Code(s): E87.6 - Hypokalemia Status: Acute Assessment and Plan: 2.9 Replenished BMP follow-up keep >4.0 (5) Sciatic leg pain: Code(s): M54.30 - Sciatica, unspecified side Status: Acute Assessment and Plan: Flexeril p.r.n. Encourage ambulation (6) Atrial flutter with rapid ventricular response: Code(s): I48.92 - Unspecified atrial flutter Status: Acute Assessment and Plan: pt add adenosine 12mgyesterday another 6 mg orderred cardiology consulted anxiolytics ordered ice orderd Subjective Date/time seen: 10/17/23 13:38 Interval history: Patient is 63-year-old female who presented to the emergency department with intractable nausea and vomiting. Patient states symptoms began yesterday morning and she has been unable to tolerate any oral intake. Patient denied any past medical history however does report she has had this cyclic vomiting in the past ever since her has passed. Patient was positive for opiates and cannabis thus this likely cannabis induced hyperemesis. Patient was to a urinary tract infection CT abdomen showed no acute issues except for a pulmonary nodule which can be followed up in 3 months. Initial labs were unremarkable however follow-up labs showed hypokalemia 2.9 secondary to vomiting and dehydration. Patient was admitted to the medical unit for further evaluation treatment hyper emphasis any UTI. Pt recovering from nausea and vomiting pt takes opiates and cannabis on regular basis Pt has a Ecoli UTI Pt is in SVT few episode last night today also ST in 150s Review of Systems Review of Systems: heart palpitation, nausea abdominal pains Exam Narrative: GENERAL: nauseated EYES: EOMI. No scleral icterus. PERRLA. HEENT: Moist mucous membranes. LUNGS: Clear to auscultation bilaterally. No accessory muscle use. CARDIOVASCULAR: 150s hear rate ABDOMEN: Soft, mild tenderness and non-distended. No palpable masses. EXTREMITIES: No edema. Non-tender SKIN: No rashes or lesions. Skin warm, dry. NEUROLOGIC: No focal neurological deficits. CN II-XII grossly intact Objective Data Vital Signs Vital Signs: Vital Signs - 24 hr 10/16/23 14:00 10/16/23 20:40 10/16/23 20:00 Temperature 37.0 C 37.6 C H Pulse Rate 75 75 Respiratory Rate 16 20 Blood Pressure 135/75 161/92 H Pulse Oximetry 94 95 Oxygen Delivery Room Air 10/17/23 05:25 10/17/23 05:25 10/17/23 05:40 Temperature Pulse Rate 149 H 149 H 147 H Respiratory Rate 21 H Blood Pressure 123/75 111/83 Pulse Oximetry 95 Oxygen Delivery 10/17/23 04:30 10/17/23 05:45 10/17/23 06:55 Temperature 36.4 C Pulse Rate 147 H 148 H 150 H Respiratory Rate 20 16 Blood Pressure 131/91 H 120/88 Pulse Oximetry 92 95 Oxygen Delivery Room Air 10/17/23 06:00 10/17/23 05:00 10/17/23 05:01 Temperat
--- NOTE | 2023-10-17 13:43 | IVDEFINITY ---
Prior to administration of IV Definity the patient was educated on the risks and benefits of the imaging enhancing agent including potential adverse side effects. The patient verbalized understanding. Allergies were verified. No exclusion criteria were identified and at least one of the following inclusion criteria were met: 1) physician request, 2) patient technically difficult to image (per the [place] [employer] guidelines of two or more segments not discernable within the apical view), or 3) questionable left ventricular function. ?
[2023-10-17] MEDS: cefTRIAXone 2 GM/NS 100 ML 2 GM/100 ML BAG IVPB (14:18)
--- NOTE | 2023-10-17 16:06 | PC.NURSE ---
Dr. Harp present in person following this RN call concerning patient's sustained dysrhythmia after interventions this afternoon. See provider communication order for recommendations in treatment regarding adjustments to amiodarone dosing.
[2023-10-17] MEDS: HYDROcodone/acetaminophen (*CRX) 5-325 MG TABLET 1 TAB PO (16:38)
--- NOTE | 2023-10-17 17:25 | ECG_ITS ---
Test Date: 2023-10-17 17:32:06 Measurements Intervals [place] Rate: 135 P: 0 [place]: 0 QRS: 7 QRSD: 101 T: 10 QT: 289 QTc: 434 Interpretive Statements ATRIAL FLUTTER/TACHYCARDIA WITH RAPID VENTRICULAR RESPONSE MILD ST SEGMENT ABNORMALITY, NONSPECIFIC ABNORMAL ECG Compared to ECG 10/17/2023 04:47:53 NO DIFFERENCE Electronically Signed On 10-18-2023 07:10:26 CDT by Shreyas Qureshi M.D.
[2023-10-17] MEDS: METOPROLOL TARTRATE INJ 5 MG/5 ML VIAL 2.5 MG IV PUSH (17:27)
--- NOTE | 2023-10-17 17:54 | ECG_ITS ---
Test Date: 2023-10-17 18:00:08 Measurements Intervals [place] Rate: 73 P: -79 [place]: 139 QRS: 26 QRSD: 78 T: 193 QT: 382 QTc: 422 Interpretive Statements NORMAL SINUS RHYTHM MILD NONSPECIFIC T-WAVE ABNORMALITY BORDERLINE ECG INTERPRETATION BASED ON A DEFAULT AGE OF 40 YEARS Compared to ECG 10/17/2023 17:32:06 SINUS RHYTHM REPLACES ATRIAL FLUTTER Electronically Signed On 10-19-2023 13:20:12 CDT by Shreyas Qureshi M.D.
[2023-10-17] MEDS: AMIODARONE 360 MG/D5W 200 ML 360 MG/200 ML BAG 16.67 MG IV CONT (18:11)
[2023-10-17] MEDS: METOPROLOL TARTRATE 25 MG TABLET PO (18:13)
--- NOTE | 2023-10-17 18:37 | PC.NURSE ---
Patient converted to NSR @ 1800, repeat EKG obtained, notified hospitalist and steam pan sponger of desired change in condition after HR converted from 150 flutter vs SVT to NSR in the 70s. New orders obtained for scheduled metoprolol see orders and mar
[2023-10-17] MEDS: AMITRIPTYLINE HCL 25 MG TABLET 50 MG PO (21:01)
[2023-10-17] MEDS: KCL 40 MEQ/0.9% SOD CHL 1,000 ML 50 ML IV CONT (23:48)
[2023-10-18] VITALS (18 sets, daily range): BP systolic 114–151; BP diastolic 69–86; PULSE 67–82; RESP 12–24; TEMP 36.2–37.1; O2SAT 93–98
[2023-10-18] MEDS: METOPROLOL TARTRATE 25 MG TABLET PO ×5 (00:07→23:40)
[2023-10-18] MEDS: AMIODARONE 360 MG/D5W 200 ML 360 MG/200 ML BAG 16.67 MG IV CONT (06:24)
[2023-10-18 07:20] LABS: Basophils Percent Auto 0.3 % (0.2-1.2); Eosinophils Absolute Auto 0.1 K/mm3 (0-0.3); Eosinophils Percent Auto 1.2 % (0-4.4); Hematocrit 44.2 % (37.0-47.0); Hemoglobin 14.8 g/dL (12.0-15.0); Immature Granulocyte Absolute 0.05 K/mm3 (0.00-0.031); Immature Granulocyte Percent A 0.5 % (0-0.5); Lymphocytes Absolute Auto 2.06 K/mm3 (0.9-3.2); Lymphocytes Percent Auto 19.1 % (18.3-44.2); Mean Corpuscular HGB Conc 33.5 g/dl (32-36); Mean Corpuscular Hemoglobin 30.6 pg (26-34); Mean Corpuscular Volume 91.5 fl (80-100); Mean Platelet Volume 10.3 fl (7.4-10.4); Monocytes Absolute Auto 0.9 K/mm3 (0.1-0.6); Monocytes Percent Auto 8.5 % (2.6-8.5); Neutrophils Absolute Auto 7.6 K/mm3 (1.3-6.7); Neutrophils Percent Auto 70.4 % (45.5-73.1); Platelet Count Result 295 k/mm3 (150-375); Red Blood Count 4.83 M/mm3 (4.2-5.4); Red Cell Distribution Width 13.4 % (11.5-14.5); White Blood Count 10.8 K/mm3 (4.5-10.0)
[2023-10-18 07:31] LABS: Alanine Aminotransferase 57 U/L (6-35); Albumin Level 4.2 g/dL (3.5-5.1); Alkaline Phosphatase 93 U/L (38-126); Anion Gap 11 mmol/L (4-12); Aspartate Amino Transferase 38 U/L (14-36); Bilirubin,Total 0.5 mg/dL (0.2-1.3); Blood Urea Nitrogen 9 mg/dL (7-17); Calcium 9.5 mg/dL (8.4-10.2); Carbon Dioxide 27 mmol/L (22-30); Chloride 99 mmol/L (98-107); Estimated CRCL calculation 74 ml/min; Estimated Glomerular Filt Rate > 60; Glucose 125 mg/dL (65-110); Magnesium 1.9 mg/dL (1.6-2.3); Potassium 4.1 mmol/L (3.4-5.0); Sodium 137 mmol/L (137-145)
[2023-10-18 07:39] LABS: NT Pro B Type Natriuretic Pept 1570 pg/mL (19.9-100)
[2023-10-18] MEDS: amLODIPine BESYLATE 5 MG TABLET PO (08:33)
[2023-10-18] MEDS: ENOXAPARIN 40 MG/0.4 ML SYRINGE SUB-Q (08:33)
[2023-10-18] MEDS: PANTOPRAZOLE SODIUM IV 40 MG VIAL IV PUSH ×2 (08:33→21:40)
--- NOTE | 2023-10-18 12:13 | PC.NURSE ---
Dr. Mallory made aware of multiple episodes of emesis. New orders noted for Tigan.
[2023-10-18] MEDS: MAGNESIUM SULF 2 GM/WATER 50ML 2 GM/50 ML BAG IVPB (12:41)
[2023-10-18] MEDS: ONDANSETRON INJ 4 MG/2 ML VIAL 8 MG IV PUSH (13:23)
--- NOTE | 2023-10-18 14:14 | PC.NURSE ---
Pt complains of epigastric burning rated 5/10. Detailed message left with Dr. Mallory.
[2023-10-18] MEDS: cefTRIAXone 2 GM/NS 100 ML 2 GM/100 ML BAG IVPB (14:55)
[2023-10-18] MEDS: TRIMETHOBENZAMIDE HCL 200 MG/2 ML VIAL IM (14:55)
--- NOTE | 2023-10-18 14:57 | P.PNIM_ITS ---
Progress Note: A&P Assessment and Plan (1) Cannabis hyperemesis syndrome concurrent with and due to cannabis abuse: Code(s): F12.188 - Cannabis abuse with other cannabis-induced disorder Status: Acute Assessment and Plan: * +cannabis smokes marijuana every day * IV Fluids * Antiemetics Zofran * Ativan PRN * CT scan of abdomen reviwed showing small hiatal hernia no other acute issues * Will advance diet as tolerated * Low-dose Haldol * Monitor electrolytes keep K >4.0 mag >2.0 * add iv protonix (2) UTI (urinary tract infection): Code(s): N39.0 - Urinary tract infection, site not specified Status: Acute Assessment and Plan: * Continue IV hydration. * urine culture positive for amaya sensitive E coli, complated 4 days of Rocephin * monito (3) Lung nodule seen on imaging study: Code(s): R91.1 - Solitary pulmonary nodule Status: Acute Assessment and Plan: * 6 x 7 mm RT lower lobe nodule * former tobacco smoker * marijuana smoker * recommend f/U CT scan 3-months (4) Hypokalemia: Code(s): E87.6 - Hypokalemia Status: Acute Assessment and Plan: * 2.9 * Replenished * BMP follow-up * keep >4.0 (5) Sciatic leg pain: Code(s): M54.30 - Sciatica, unspecified side Status: Acute Assessment and Plan: * Flexeril p.r.n. * Encourage ambulation (6) Atrial flutter with rapid ventricular response: Code(s): I48.92 - Unspecified atrial flutter Status: Acute Assessment and Plan: pt add adenosine 12mgyesterday another 6 mg orderred on Amiodarone infusion per Cardiology maintain K above 4, Mg above 2 cardiology to transition to PO regimen Overnight pulse ox ordered Subjective Date/time seen: 10/18/23 14:57 Interval history: patient comfortable at bedside, on Amiodarone infusion cardiology following Overnight pulse oximetry for home oxygen eval Review of Systems Review of Systems: heart palpitation, nausea abdominal pains All systems reviewed & are unremarkable except as noted in HPI and below Exam Narrative: * GENERAL: nauseated * EYES: EOMI. No scleral icterus. PERRLA. * HEENT: Moist mucous membranes. * LUNGS: Clear to auscultation bilaterally. No accessory muscle use. * CARDIOVASCULAR: 150s hear rate * ABDOMEN: Soft, mild tenderness and non-distended. No palpable masses. * EXTREMITIES: No edema. Non-tender * SKIN: No rashes or lesions. Skin warm, dry. * NEUROLOGIC: No focal neurological deficits. CN II-XII grossly intact Objective Data Vital Signs Vital Signs: Vital Signs - 24 hr 10/17/23 16:00 10/17/23 17:03 10/17/23 17:16 Temperature 98.7 F Pulse Rate 153 H 152 H 150 H Respiratory Rate 18 18 18 Blood Pressure 147/117 H 148/97 H 148/97 H Pulse Oximetry 96 88 L 88 L Oxygen Delivery Room Air Room Air 10/17/23 17:27 10/17/23 18:11 10/17/23 18:13 Temperature Pulse Rate 150 H 75 78 Respiratory Rate Blood Pressure 145/96 H Pulse Oximetry Oxygen Delivery 10/17/23 16:00 10/17/23 18:21 10/17/23 16:00 Temperature Pulse Rate 152 H 72 151 H Respiratory Rate Blood Pre
--- NOTE | 2023-10-18 14:57 | PM.IMPN ---
Progress Note: A&P Assessment and Plan (1) Cannabis hyperemesis syndrome concurrent with and due to cannabis abuse: Code(s): F12.188 - Cannabis abuse with other cannabis-induced disorder Status: Acute Assessment and Plan: +cannabis smokes marijuana every day IV Fluids Antiemetics Zofran Ativan PRN CT scan of abdomen reviwed showing small hiatal hernia no other acute issues Will advance diet as tolerated Low-dose Haldol Monitor electrolytes keep K >4.0 mag >2.0 add iv protonix (2) UTI (urinary tract infection): Code(s): N39.0 - Urinary tract infection, site not specified Status: Acute Assessment and Plan: Continue IV hydration. urine culture positive for amaya sensitive E coli, complated 4 days of Rocephin monito (3) Lung nodule seen on imaging study: Code(s): R91.1 - Solitary pulmonary nodule Status: Acute Assessment and Plan: 6 x 7 mm RT lower lobe nodule former tobacco smoker marijuana smoker recommend f/U CT scan 3-months (4) Hypokalemia: Code(s): E87.6 - Hypokalemia Status: Acute Assessment and Plan: 2.9 Replenished BMP follow-up keep >4.0 (5) Sciatic leg pain: Code(s): M54.30 - Sciatica, unspecified side Status: Acute Assessment and Plan: Flexeril p.r.n. Encourage ambulation (6) Atrial flutter with rapid ventricular response: Code(s): I48.92 - Unspecified atrial flutter Status: Acute Assessment and Plan: pt add adenosine 12mgyesterday another 6 mg orderred on Amiodarone infusion per Cardiology maintain K above 4, Mg above 2 cardiology to transition to PO regimen Overnight pulse ox ordered Subjective Date/time seen: 10/18/23 14:57 Interval history: patient comfortable at bedside, on Amiodarone infusion cardiology following Overnight pulse oximetry for home oxygen eval Review of Systems Review of Systems: heart palpitation, nausea abdominal pains All systems reviewed & are unremarkable except as noted in HPI and below Exam Narrative: GENERAL: nauseated EYES: EOMI. No scleral icterus. PERRLA. HEENT: Moist mucous membranes. LUNGS: Clear to auscultation bilaterally. No accessory muscle use. CARDIOVASCULAR: 150s hear rate ABDOMEN: Soft, mild tenderness and non-distended. No palpable masses. EXTREMITIES: No edema. Non-tender SKIN: No rashes or lesions. Skin warm, dry. NEUROLOGIC: No focal neurological deficits. CN II-XII grossly intact Objective Data Vital Signs Vital Signs: Vital Signs - 24 hr 10/17/23 16:00 10/17/23 17:03 10/17/23 17:16 Temperature 98.7 F Pulse Rate 153 H 152 H 150 H Respiratory Rate 18 18 18 Blood Pressure 147/117 H 148/97 H 148/97 H Pulse Oximetry 96 88 L 88 L Oxygen Delivery Room Air Room Air 10/17/23 17:27 10/17/23 18:11 10/17/23 18:13 Temperature Pulse Rate 150 H 75 78 Respiratory Rate Blood Pressure 145/96 H Pulse Oximetry Oxygen Delivery 10/17/23 16:00 10/17/23 18:21 10/17/23 16:00 Temperature Pulse Rate 152 H 72 151 H Respiratory Rate Blood Pressure 139/88 143/78 H Pulse Oximetry Oxygen Delivery Room Air 10/17/23 16:00 10/17/23 19:58 10/17/23 20:00 Temperature Pulse Rate 153 H 76 79 Respiratory Rate 18 Blood Pressure Pulse Oximetry 88 L Oxygen Delivery Room Air 10/17/23 20:00 10/17/23 21:59 10/17/23 20:00 Temperature 98.4 F Pulse Rate 72 67 79 Respiratory Rate 18 Blood Pressure 129/77 145/97 H 129/77 Pulse Oximetry 94 Oxygen Delivery 10/17/23 22:00 10/17/23 23:54 10/18/23 00:00 Temperature 97.5 F L Pulse Rate 67 78 72 Respiratory Rate 14 Blood Pressure 145/67 H 123/78 Pulse Oximetry 94 Oxygen Delivery 10/18/23 00:00 10/18/23 00:00 10/18/23 01:47 Temperature Pulse Rate 72 78 73 Respiratory Rate 14 Blood Pressure 123/78 124/71 Pulse Oximetry 94
--- NOTE | 2023-10-18 15:28 | PM.PNCARD ---
Progress Note: A&P Assessment and Plan (1) Atrial flutter with rapid ventricular response: Code(s): I48.92 - Unspecified atrial flutter Status: Acute Plan 63-year-old lady with atrial flutter with rapid ventricular response. Restored to sinus rhythm after receiving intravenous amiodarone. Today I am going to stop the amiodarone infusion and continue metoprolol. Probably switch her to long-acting metoprolol tomorrow. Her echocardiogram demonstrates hyperdynamic appearing left ventricular function. Hopefully this is the response to the stress of her cyclical vomiting and I would agree with Dr. Harp that she does not require systemic anticoagulation at this time. Will follow her telemetry with you and again anticipate transitioning to metoprolol succinate tomorrow Shreyas Qureshi MD [facility] Subjective Date/time seen: Date of service: 10/18/23 15:28 Interval history: Follow-up visit in this 63-year-old lady with: Atrial flutter with rapid ventricular response. Patient has this arrhythmia with minimal symptoms of it in the setting of cyclical vomiting. She has been converted to sinus rhythm with amiodarone continues on an amiodarone infusion at this time and has been started on short-acting oral metoprolol. Exam Const: General: comfortable and no acute distress HENMT: Mouth: Yes moist mucous membranes Eyes: General: appearance normal, both eyes and all related structures Sclera: sclerae normal Resp: Effort & Inspection: normal respiratory effort Auscultation: clear to auscultation bilaterally Cardio: Rate: regular rate Rhythm: regular rhythm Heart sounds: no murmurs GI: GI Palp: Yes Soft to palpation Skin: General skin exam: normal color Neuro: Speech: normal speech Psych: Mental Status: mental status grossly normal Affect: normal affect Objective Data Vital Signs Vital Signs: Vital Signs - 24 hr 10/17/23 16:00 10/17/23 17:03 10/17/23 17:16 Temperature 37.1 C Pulse Rate 153 H 152 H 150 H Respiratory Rate 18 18 18 Blood Pressure 147/117 H 148/97 H 148/97 H Pulse Oximetry 96 88 L 88 L Oxygen Delivery Room Air Room Air 10/17/23 17:27 10/17/23 18:11 10/17/23 18:13 Temperature Pulse Rate 150 H 75 78 Respiratory Rate Blood Pressure 145/96 H Pulse Oximetry Oxygen Delivery 10/17/23 16:00 10/17/23 18:21 10/17/23 16:00 Temperature Pulse Rate 152 H 72 151 H Respiratory Rate Blood Pressure 139/88 143/78 H Pulse Oximetry Oxygen Delivery Room Air 10/17/23 16:00 10/17/23 19:58 10/17/23 20:00 Temperature Pulse Rate 153 H 76 79 Respiratory Rate 18 Blood Pressure Pulse Oximetry 88 L Oxygen Delivery Room Air 10/17/23 20:00 10/17/23 21:59 10/17/23 20:00 Temperature 36.9 C Pulse Rate 72 67 79 Respiratory Rate 18 Blood Pressure 129/77 145/97 H 129/77 Pulse Oximetry 94 Oxygen Delivery 10/17/23 22:00 10/17/23 23:54 10/18/23 00:00 Temperature 36.4 C L Pulse Rate 67 78 72 Respiratory Rate 14 Blood Pressure 145/67 H 123/78 Pulse Oximetry 94 Oxygen Delivery 10/18/23 00:00 10/18/23 00:00 10/18/23 01:47 Temperature Pulse Rate 72 78 73 Respiratory Rate 14 Blood Pressure 123/78 124/71 Pulse Oximetry 94 Oxygen Delivery Room Air 10/18/23 02:00 10/18/23 04:00 10/18/23 04:00 Temperature 36.9 C Pulse Rate 67 71 67 Respiratory Rate 16 Blood Pressure 129/81 Pulse Oximetry 97 Oxygen Delivery 10/18/23 04:00 10/18/23 04:00 10/18/23 05:58 Temperature Pulse Rate 71 80 Respiratory Rate Blood Pressure 129/81 126/75 Pulse Oximetry Oxygen Delivery Room Air 10/18/23 06:24 10/18/23 06:24 10/18/23 06:24 Temperature Pulse Rate 77 77 77 Respiratory Rate Blood Pressure Pulse Oximetry Oxygen Delivery 10/18/23 08:00 10/18/23 08:00 10/18/23 08:00 Temperature 36.8 C Pulse Rate 74 70 Respiratory Rate 12 Blood Pressure 123/85 Pulse Oxim
--- NOTE | 2023-10-18 16:00 | PC.NURSE ---
Continued vomiting with continued epigastric pain rated 5/10 and described as burning. Dr. Mallory made aware. New orders noted for morphine and STAT CT w contrast of abdomen.
[2023-10-18] MEDS: MORPHINE SULFATE (*CRX) 2 MG/ML INJ IV PUSH (16:20)
[2023-10-18] MEDS: KCL 40 MEQ/0.9% SOD CHL 1,000 ML 50 ML IV CONT (19:17)
[2023-10-18] MEDS: AMITRIPTYLINE HCL 25 MG TABLET 50 MG PO (21:40)
[2023-10-19] VITALS (14 sets, daily range): BP systolic 118–139; BP diastolic 72–91; PULSE 63–90; RESP 14–18; TEMP 36.1–36.8; O2SAT 93–99
[2023-10-19 04:46] LABS: Basophils Percent Auto 0.3 % (0.2-1.2); Eosinophils Absolute Auto 0.1 K/mm3 (0-0.3); Eosinophils Percent Auto 1.2 % (0-4.4); Hematocrit 42.3 % (37.0-47.0); Hemoglobin 13.8 g/dL (12.0-15.0); Immature Granulocyte Absolute 0.04 K/mm3 (0.00-0.031); Immature Granulocyte Percent A 0.4 % (0-0.5); Lymphocytes Absolute Auto 1.71 K/mm3 (0.9-3.2); Lymphocytes Percent Auto 18.3 % (18.3-44.2); Mean Corpuscular HGB Conc 32.6 g/dl (32-36); Mean Corpuscular Volume 95.1 fl (80-100); Mean Platelet Volume 10.7 fl (7.4-10.4); Neutrophils Absolute Auto 6.4 K/mm3 (1.3-6.7); Neutrophils Percent Auto 68.8 % (45.5-73.1); Platelet Count Result 262 k/mm3 (150-375); Red Blood Count 4.45 M/mm3 (4.2-5.4); Red Cell Distribution Width 13.5 % (11.5-14.5); White Blood Count 9.3 K/mm3 (4.5-10.0)
[2023-10-19 05:13] LABS: Alanine Aminotransferase 46 U/L (6-35); Albumin Level 3.6 g/dL (3.5-5.1); Alkaline Phosphatase 71 U/L (38-126); Anion Gap 10 mmol/L (4-12); Aspartate Amino Transferase 24 U/L (14-36); Bilirubin,Total 0.5 mg/dL (0.2-1.3); Blood Urea Nitrogen 10 mg/dL (7-17); Calcium 9.3 mg/dL (8.4-10.2); Carbon Dioxide 29 mmol/L (22-30); Chloride 98 mmol/L (98-107); Estimated CRCL calculation 74 ml/min; Estimated Glomerular Filt Rate > 60; Glucose 101 mg/dL (65-110); Potassium 4.2 mmol/L (3.4-5.0); Sodium 137 mmol/L (137-145)
[2023-10-19] MEDS: METOPROLOL TARTRATE 25 MG TABLET PO (06:44)
[2023-10-19] MEDS: amLODIPine BESYLATE 5 MG TABLET PO (09:11)
[2023-10-19] MEDS: ENOXAPARIN 40 MG/0.4 ML SYRINGE SUB-Q (09:11)
[2023-10-19] MEDS: PANTOPRAZOLE SODIUM IV 40 MG VIAL IV PUSH ×2 (09:11→20:29)
--- NOTE | 2023-10-19 11:35 | PM.PNCARD ---
Progress Note: A&P Assessment and Plan (1) Atrial flutter with rapid ventricular response: Code(s): I48.92 - Unspecified atrial flutter Status: Acute Plan 63-year-old lady with cyclic nausea/vomiting also with atrial flutter with RVR. She is taking metoprolol thus far maintaining sinus rhythm. For dosing convenience I will transition her to metoprolol succinate. She understands that there is plan to consider discharge tomorrow. That would be fine with me. Metoprolol succinate will hopefully successfully maintain sinus rhythm. Shreyas Qureshi MD [facility] Subjective Date/time seen: Date of service: 10/19/23 11:35 Interval history: Follow-up visit in this 63-year-old lady with: Atrial flutter with rapid ventricular response. Patient has this arrhythmia with minimal symptoms of it in the setting of cyclical vomiting. She has been converted to sinus rhythm with amiodarone continues on an amiodarone infusion at this time and has been started on short-acting oral metoprolol. Date of service 10/19/2023: Patient is asymptomatic feeling well today nausea is significantly improved. Maintaining sinus rhythm, heart rate generally in the 80s Exam Const: General: comfortable and no acute distress HENMT: Mouth: Yes moist mucous membranes Eyes: General: appearance normal, both eyes and all related structures Sclera: sclerae normal Resp: Effort & Inspection: normal respiratory effort Auscultation: clear to auscultation bilaterally Cardio: Rate: regular rate and tachycardic Rhythm: regular rhythm Heart sounds: no murmurs Skin: General skin exam: normal color Neuro: Speech: normal speech Psych: Mental Status: mental status grossly normal Affect: normal affect Objective Data Vital Signs Vital Signs: Vital Signs - 24 hr 10/18/23 12:00 10/18/23 12:41 10/18/23 12:00 Temperature 37.1 C Pulse Rate 76 75 73 Respiratory Rate 24 H Blood Pressure 114/86 Pulse Oximetry 97 Oxygen Delivery 10/18/23 12:00 10/18/23 16:00 10/18/23 14:00 Temperature 36.9 C Pulse Rate 75 76 Respiratory Rate 16 Blood Pressure 151/76 H Pulse Oximetry 97 94 Oxygen Delivery Room Air 10/18/23 16:00 10/18/23 16:00 10/18/23 18:00 Temperature Pulse Rate 75 78 Respiratory Rate Blood Pressure Pulse Oximetry 94 Oxygen Delivery Room Air 10/18/23 19:17 10/18/23 20:00 10/18/23 20:00 Temperature 36.4 C Pulse Rate 73 74 Respiratory Rate 18 Blood Pressure 151/72 H Pulse Oximetry 98 Oxygen Delivery Room Air 10/18/23 20:00 10/18/23 22:00 10/18/23 23:31 Temperature 36.2 C L Pulse Rate 82 79 79 Respiratory Rate 16 Blood Pressure 120/70 Pulse Oximetry 93 Oxygen Delivery 10/18/23 23:40 10/19/23 00:00 10/19/23 00:00 Temperature Pulse Rate 76 69 Respiratory Rate Blood Pressure Pulse Oximetry Oxygen Delivery Room Air 10/19/23 02:00 10/19/23 04:00 10/19/23 04:00 Temperature 36.8 C Pulse Rate 73 64 Respiratory Rate 14 Blood Pressure 139/81 Pulse Oximetry 99 Oxygen Delivery Room Air 10/19/23 04:00 10/19/23 06:00 10/19/23 06:44 Temperature Pulse Rate 63 71 79 Respiratory Rate Blood Pressure Pulse Oximetry Oxygen Delivery 10/19/23 08:00 10/19/23 08:00 10/19/23 08:00 Temperature 36.5 C Pulse Rate 75 80 Respiratory Rate 18 Blood Pressure 121/72 Pulse Oximetry 97 Oxygen Delivery Room Air 10/19/23 10:00 Temperature Pulse Rate 76 Respiratory Rate Blood Pressure Pulse Oximetry Oxygen Delivery Intake/Output Intake/Output: Intake & Output 10/16/23 10/17/23 10/18/23 10/19/23 23:59 23:59 23:59 23:59 Intake Total 2526.7 4624.4 2520.6 550 Output Total 400 2900 1350 Balance 2526.7 4224.4 -379.4 -800 Meds/Results Medications: Active Medications Generic Name Dose Route Start Last Admin Trade Name Freq PRN Reason Stop Dose Admin Acetaminophen 650 mg
[2023-10-19 12:40] LABS: Glucose Point of Care 128 mg/dl (65-105)
--- NOTE | 2023-10-19 16:25 | P.PNIM_ITS ---
Progress Note: A&P Assessment and Plan (1) Cannabis hyperemesis syndrome concurrent with and due to cannabis abuse: Code(s): F12.188 - Cannabis abuse with other cannabis-induced disorder Status: Acute Assessment and Plan: * +cannabis smokes marijuana every day * IV Fluids * Antiemetics Zofran * Ativan PRN * CT scan of abdomen reviwed showing small hiatal hernia no other acute issues * Will advance diet as tolerated * Low-dose Haldol * Monitor electrolytes keep K >4.0 mag >2.0 * add iv protonix (2) UTI (urinary tract infection): Code(s): N39.0 - Urinary tract infection, site not specified Status: Acute Assessment and Plan: * Continue IV hydration. * urine culture positive for amaya sensitive E coli, complated 4 days of Rocephin * monito (3) Lung nodule seen on imaging study: Code(s): R91.1 - Solitary pulmonary nodule Status: Acute Assessment and Plan: * 6 x 7 mm RT lower lobe nodule * former tobacco smoker * marijuana smoker * recommend f/U CT scan 3-months (4) Hypokalemia: Code(s): E87.6 - Hypokalemia Status: Acute Assessment and Plan: * 2.9 * Replenished * BMP follow-up * keep >4.0 (5) Sciatic leg pain: Code(s): M54.30 - Sciatica, unspecified side Status: Acute Assessment and Plan: * Flexeril p.r.n. * Encourage ambulation (6) Atrial flutter with rapid ventricular response: Code(s): I48.92 - Unspecified atrial flutter Status: Acute Assessment and Plan: pt add adenosine 12mgyesterday another 6 mg orderred on Amiodarone infusion per Cardiology maintain K above 4, Mg above 2 continue Metoprolol 50mg daily Overnight pulse ox ordered monitor overnight Subjective Date/time seen: 10/19/23 16:25 Interval history: Follow-up visit in this 63-year-old lady with: metoprolol increased to 50mg daily, observe overnight for hemodynamics Review of Systems Review of Systems: heart palpitation, nausea abdominal pains All systems reviewed & are unremarkable except as noted in HPI and below Exam Narrative: * GENERAL: nauseated * EYES: EOMI. No scleral icterus. PERRLA. * HEENT: Moist mucous membranes. * LUNGS: Clear to auscultation bilaterally. No accessory muscle use. * CARDIOVASCULAR: 150s hear rate * ABDOMEN: Soft, mild tenderness and non-distended. No palpable masses. * EXTREMITIES: No edema. Non-tender * SKIN: No rashes or lesions. Skin warm, dry. * NEUROLOGIC: No focal neurological deficits. CN II-XII grossly intact Objective Data Vital Signs Vital Signs: Vital Signs - 24 hr 10/18/23 18:00 10/18/23 19:17 10/18/23 20:00 Temperature 97.6 F Pulse Rate 78 73 74 Respiratory Rate 18 Blood Pressure 151/72 H Pulse Oximetry 98 Oxygen Delivery 10/18/23 20:00 10/18/23 20:00 10/18/23 22:00 Temperature Pulse Rate 82 79 Respiratory Rate Blood Pressure Pulse Oximetry Oxygen Delivery Room Air 10/18/23 23:31 10/18/23 23:40 10/19/23 00:00 Temperature 97.1 F L Pulse Rate 79 76 Respiratory Rate 16 Blood Pressure 120/70 Pulse Oximetry 93 Oxygen Delivery Room
--- NOTE | 2023-10-19 16:25 | PM.IMPN ---
Progress Note: A&P Assessment and Plan (1) Cannabis hyperemesis syndrome concurrent with and due to cannabis abuse: Code(s): F12.188 - Cannabis abuse with other cannabis-induced disorder Status: Acute Assessment and Plan: +cannabis smokes marijuana every day IV Fluids Antiemetics Zofran Ativan PRN CT scan of abdomen reviwed showing small hiatal hernia no other acute issues Will advance diet as tolerated Low-dose Haldol Monitor electrolytes keep K >4.0 mag >2.0 add iv protonix (2) UTI (urinary tract infection): Code(s): N39.0 - Urinary tract infection, site not specified Status: Acute Assessment and Plan: Continue IV hydration. urine culture positive for amaya sensitive E coli, complated 4 days of Rocephin monito (3) Lung nodule seen on imaging study: Code(s): R91.1 - Solitary pulmonary nodule Status: Acute Assessment and Plan: 6 x 7 mm RT lower lobe nodule former tobacco smoker marijuana smoker recommend f/U CT scan 3-months (4) Hypokalemia: Code(s): E87.6 - Hypokalemia Status: Acute Assessment and Plan: 2.9 Replenished BMP follow-up keep >4.0 (5) Sciatic leg pain: Code(s): M54.30 - Sciatica, unspecified side Status: Acute Assessment and Plan: Flexeril p.r.n. Encourage ambulation (6) Atrial flutter with rapid ventricular response: Code(s): I48.92 - Unspecified atrial flutter Status: Acute Assessment and Plan: pt add adenosine 12mgyesterday another 6 mg orderred on Amiodarone infusion per Cardiology maintain K above 4, Mg above 2 continue Metoprolol 50mg daily Overnight pulse ox ordered monitor overnight Subjective Date/time seen: 10/19/23 16:25 Interval history: Follow-up visit in this 63-year-old lady with: metoprolol increased to 50mg daily, observe overnight for hemodynamics Review of Systems Review of Systems: heart palpitation, nausea abdominal pains All systems reviewed & are unremarkable except as noted in HPI and below Exam Narrative: GENERAL: nauseated EYES: EOMI. No scleral icterus. PERRLA. HEENT: Moist mucous membranes. LUNGS: Clear to auscultation bilaterally. No accessory muscle use. CARDIOVASCULAR: 150s hear rate ABDOMEN: Soft, mild tenderness and non-distended. No palpable masses. EXTREMITIES: No edema. Non-tender SKIN: No rashes or lesions. Skin warm, dry. NEUROLOGIC: No focal neurological deficits. CN II-XII grossly intact Objective Data Vital Signs Vital Signs: Vital Signs - 24 hr 10/18/23 18:00 10/18/23 19:17 10/18/23 20:00 Temperature 97.6 F Pulse Rate 78 73 74 Respiratory Rate 18 Blood Pressure 151/72 H Pulse Oximetry 98 Oxygen Delivery 10/18/23 20:00 10/18/23 20:00 10/18/23 22:00 Temperature Pulse Rate 82 79 Respiratory Rate Blood Pressure Pulse Oximetry Oxygen Delivery Room Air 10/18/23 23:31 10/18/23 23:40 10/19/23 00:00 Temperature 97.1 F L Pulse Rate 79 76 Respiratory Rate 16 Blood Pressure 120/70 Pulse Oximetry 93 Oxygen Delivery Room Air 10/19/23 00:00 10/19/23 02:00 10/19/23 04:00 Temperature 98.2 F Pulse Rate 69 73 64 Respiratory Rate 14 Blood Pressure 139/81 Pulse Oximetry 99 Oxygen Delivery 10/19/23 04:00 10/19/23 04:00 10/19/23 06:00 Temperature Pulse Rate 63 71 Respiratory Rate Blood Pressure Pulse Oximetry Oxygen Delivery Room Air 10/19/23 06:44 10/19/23 08:00 10/19/23 08:00 Temperature 97.7 F Pulse Rate 79 75 80 Respiratory Rate 18 Blood Pressure 121/72 Pulse Oximetry 97 Oxygen Delivery 10/19/23 08:00 10/19/23 10:00 10/19/23 12:00 Temperature 96.9 F L Pulse Rate 76 75 Respiratory Rate 18 Blood Pressure 130/91 H Pulse Oximetry 95 Oxygen Delivery Room Air 10/19/23 12:00 10/19/23 12:00 10/19/23 14:00 Temperature Pulse
[2023-10-19] MEDS: KCL 40 MEQ/0.9% SOD CHL 1,000 ML 50 ML IV CONT (19:43)
[2023-10-19] MEDS: AMITRIPTYLINE HCL 25 MG TABLET 50 MG PO (20:29)
[2023-10-19] MEDS: TRIMETHOBENZAMIDE HCL 200 MG/2 ML VIAL IM (23:02)
[2023-10-20] VITALS (10 sets, daily range): BP systolic 131–159; BP diastolic 76–92; PULSE 75–105; RESP 16–18; TEMP 36.4–36.8; O2SAT 96–99
[2023-10-20] MEDS: ONDANSETRON INJ 4 MG/2 ML VIAL 8 MG IV PUSH (00:20)
[2023-10-20 04:22] LABS: Basophils Percent Auto 0.3 % (0.2-1.2); Eosinophils Percent Auto 0.2 % (0-4.4); Hematocrit 44.1 % (37.0-47.0); Hemoglobin 14.9 g/dL (12.0-15.0); Immature Granulocyte Absolute 0.06 K/mm3 (0.00-0.031); Immature Granulocyte Percent A 0.6 % (0-0.5); Lymphocytes Absolute Auto 0.79 K/mm3 (0.9-3.2); Lymphocytes Percent Auto 7.4 % (18.3-44.2); Mean Corpuscular HGB Conc 33.8 g/dl (32-36); Mean Corpuscular Hemoglobin 30.5 pg (26-34); Mean Corpuscular Volume 90.2 fl (80-100); Mean Platelet Volume 10.5 fl (7.4-10.4); Monocytes Absolute Auto 0.9 K/mm3 (0.1-0.6); Monocytes Percent Auto 8.4 % (2.6-8.5); Neutrophils Absolute Auto 8.9 K/mm3 (1.3-6.7); Neutrophils Percent Auto 83.1 % (45.5-73.1); Platelet Count Result 294 k/mm3 (150-375); Red Blood Count 4.89 M/mm3 (4.2-5.4); Red Cell Distribution Width 13.6 % (11.5-14.5); White Blood Count 10.7 K/mm3 (4.5-10.0)
[2023-10-20 04:30] LABS: Alanine Aminotransferase 45 U/L (6-35); Albumin Level 4.2 g/dL (3.5-5.1); Alkaline Phosphatase 83 U/L (38-126); Anion Gap 13 mmol/L (4-12); Aspartate Amino Transferase 25 U/L (14-36); Bilirubin,Total 0.8 mg/dL (0.2-1.3); Blood Urea Nitrogen 12 mg/dL (7-17); Carbon Dioxide 24 mmol/L (22-30); Chloride 99 mmol/L (98-107); Estimated CRCL calculation 84 ml/min; Estimated Glomerular Filt Rate > 60; Glucose 139 mg/dL (65-110); Magnesium 1.9 mg/dL (1.6-2.3); Potassium 4.2 mmol/L (3.4-5.0); Sodium 136 mmol/L (137-145)
[2023-10-20] MEDS: LORazepam INJ (*CRX) 2 MG/ML VIAL 1 MG IV PUSH (06:31)
[2023-10-20] MEDS: ENOXAPARIN 40 MG/0.4 ML SYRINGE SUB-Q (09:02)
[2023-10-20] MEDS: METOPROLOL SUCCINATE EXT REL 50 MG TABCR PO (09:02)
[2023-10-20] MEDS: MAGNESIUM SULF 1 GM/D5W 100 ML 1 GM/100 ML BAG IVPB (09:04)
[2023-10-20] MEDS: amLODIPine BESYLATE 5 MG TABLET PO (09:04)
[2023-10-20] MEDS: PANTOPRAZOLE SODIUM IV 40 MG VIAL IV PUSH (09:04)
--- NOTE | 2023-10-20 11:54 | PM.DS ---
DS: Admitting Diagnosis Discharge Date 10/20/23 Admitting Diagnosis intractable vomiting DS: Discharge Diagnosis Discharge Diagnosis (1) Intractable vomiting: Code(s): R11.10 - Vomiting, unspecified Status: Acute (2) Atrial flutter with rapid ventricular response: Code(s): I48.92 - Unspecified atrial flutter Status: Acute DS: Summary Hospital Course Hospital Course: Patient is 63-year-old female who presented to the emergency department with intractable nausea and vomiting. Patient states symptoms began yesterday morning and she has been unable to tolerate any oral intake. Patient denied any past medical history however does report she has had this cyclic vomiting in the past ever since her has passed. Patient was positive for opiates and cannabis thus this likely cannabis induced hyperemesis. Patient was to a urinary tract infection CT abdomen showed no acute issues except for a pulmonary nodule which can be followed up in 3 months. Initial labs were unremarkable however follow-up labs showed hypokalemia 2.9 secondary to vomiting and dehydration. Patient was admitted to the medical unit for further evaluation treatment hyper emphasis any UTI. patient was managed for cannabis hyperemesis syndrome and Aflutter with RVR. Patient counseled about cannabis cessation. vomiting resolved adn discharged on PRN ODT Zofran S/p Amiodarone infusion, discharged on Metoprolol per cardiology and [id number] of 2 and no anticoagulation needed. topical management Assessment and Plan (1) Cannabis hyperemesis syndrome concurrent with and due to cannabis abuse: Code(s): F12.188 - Cannabis abuse with other cannabis-induced disorder Status: Acute Assessment and Plan: +cannabis smokes marijuana every day IV Fluids Antiemetics Zofran Ativan PRN CT scan of abdomen reviewed showing small hiatal hernia no other acute issues tolerating diet and vomiting resolved discharged on 14 days protnix and ODT Zofran N39.0 - Urinary tract infection, site not specified Status: Acute Assessment and Plan: Continue IV hydration. urine culture positive for amaya sensitive E coli, complated 4 days of Rocephin monito (3) Lung nodule seen on imaging study: Code(s): R91.1 - Solitary pulmonary nodule Status: Acute Assessment and Plan: 6 x 7 mm RT lower lobe nodule former tobacco smoker marijuana smoker recommend f/U CT scan 3-months(4) f/u with PCP in 3-5 days E87.6 - Hypok, resolved alemia Status: Acute Assessment and Plan: 2.9 Replenished BMP follow-up keep >4.0(5) Code(s): M54.30 - Sciatica, unspecified side Status: Acute Assessment and Plan: Flexeril p.r.n. Encourage ambulation(6) Atrial flutter with rapid ventricular response: Code(s): I48.92 - Unspecified atrial flutter Status: Acute Assessment and Plan: pt add adenosine 12mgyesterday another 6 mg orderred s/p Amiodarone infusion per Cardiology maintain K above 4, Mg above 2 Discharged on metoprolol 50mg daily F/u with cardiology as instructed F/u with PCP in 3-5 days Time Spent with Patient Time attestation: Total time spent providing and/or coordinating discharge services: DS: Data Data Completed and Pending Labs on day of discharge: Labs from last 24 hours 10/20/23 10/19/23 04:09 11:24 WBC 10.7 H RBC 4.89 Hgb 14.9 Hct 44.1 MCV 90.2 D MCH 30.5 MCHC 33.8 RDW 13.6 Plt Count 294 MPV 10.5 H Immature Gran % (Auto) 0.6 H Neut % (Auto) 83.1 H Lymph % (Auto) 7.4 L [place] % (Auto) 8.4 Eos % (Auto) 0.2 Baso % (Auto) 0.3 Lymph # (Auto) 0.79 L [place] # (Auto) 0.9 H Eos # (Auto) 0.0 Baso # (Auto) 0.0 Abs Immat Gran (auto) 0.06 H Absolute Neuts (auto) 8.9 H Absolute Nucleated RBC 0.000 Nucleated RBC % 0.0 Sodium 136 L Potassium 4.2 Chloride 9
== END 2023-10-20 12:46 | disposition home or self-care (01) | DRG 897 ==
LOC: ANHED 11:11 → ANH3MEDSUR 20:35 → ANHICU 10-17 11:48 → ANHIMU 10-20 11:53 → ANH3MEDSUR 10-23 12:56 → ANHICU 10-23 12:56 → ANHIMU 10-23 12:56
PROVIDERS: Nurse Practitioner Family; Student in an Organized Health Care Education/Training Program; Admitting Provider Internal Medicine; Emergency Provider Emergency Medicine; PCP Internal Medicine; Visit Provider Internal Medicine
DX: F12.188 Cannabis abuse with other cannabis-induced disorder (principal); N39.0 Urinary tract infection, site not specified; I48.92 Unspecified atrial flutter; E87.6 Hypokalemia; E86.0 Dehydration; R91.1 Solitary pulmonary nodule; M54.32 Sciatica, left side; Z87.891 Personal history of nicotine dependence
CPT/HCPCS: 36415; 74160; 74174; 74176; 80048; 80053; 80307; 81001; 82948; 83690; 83735; 83880; 84443; 84484; 85025; 85027; 87077; 87086; 87088; 87186; 93005; 96361; 96372; 96374; 96375; 96376; 99285; A9270; C8929; G0378; J0153; J0282; J0696; J1170; J1200; J1630; J1650; J1885; J2060; J2270; J2405; J2470; J2765; J3250; J3475; J3480; J7030; J7040; Q9957; Q9967

== ENCOUNTER 2024-03-10 08:55 | Emergency (ER) | payer MEDICARE, SELFPAY ==
--- NOTE | ~2024-03-10 | XR_ITS ---
EXAMINATION: XR knee LT min 4V DATE: 03/10/2024 09:29 INDICATION: Twisting injury post fall with audible pop at the left knee presenting with left knee tate n. TECHNIQUE: Anteroposterior, 2 oblique and crosstable lateral views of the left knee were obtained COMPARISON: None. FINDINGS: Alignment is normal. No fracture. Medial compartment predominant tricompartmental osteoarthritis at the right knee with mild joint space narrowing the medial compartment and small marginal osteophytes in all 3 compartments. Possible small to moderate-sized left knee joint effusion without layering lip ohemarthrosis. There is subcutaneous varicosities at the posterolateral aspect of the left knee and d istal thigh. Soft tissues are otherwise unremarkable. IMPRESSION: 1. Medial compartment predominant tricompartmental osteoarthritis the left knee. No acute osseous abn ormality. 2. Possible small to moderate-sized left knee joint effusion. Reviewed, dictated and finalized at location B. RUMENT CALIBRATOR IMPRESSION: 1. Medial compartment predominant tricompartmental osteoarthritis the left knee . No acute osseous abnormality. 2. Possible small to moderate-sized left knee joint effusion.
--- NOTE | ~2024-03-10 | XR_ITS ---
EXAMINATION: XR hand RT min 3V DATE: 03/10/2024 09:29 INDICATION: Bruising at the right fifth metacarpal post fall TECHNIQUE: Posteroanterior, oblique and lateral views of the right hand were obtained. COMPARISON: None. FINDINGS: Old fracture deformity at the neck of the right fifth metacarpal. There is minimal displacement of a new acute fracture at the head neck junction which may involve a minimal portion of the dorsal/ulnar margin of the articular cortex. There is approximately 35 degree palmar/radial angulation of the head fragment resulting from combination of the acute and old healed fractures. No other acute fractures identified. 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 Prominent likely degenerative cystic change at the proximal pole of the scaphoid. Ulnar variance ap pears neutral however there is mild cystic change at the ulnar side of the proximal articular surface of the lunate which could be seen with ulnocarpal impaction. Soft tissue swelling about the dorsal/u lnar side of the hand. IMPRESSION: 1. Minimal displacement of a recurrent acute on chronic fracture at the head neck junction of the dis alcides right fifth metacarpal which extends to the margin of the articular cortex. 2. 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 3. Mild cystlike change at the proximal lunate suggestive of ulnocarpal impaction. Reviewed, dictated and finalized at location B. R CAPTAIN IMPRESSION: 1. Minimal displacement of a recurrent acute on chronic fracture at the head ne ck junction of the distal right fifth metacarpal which extends to the margin of the articular cortex. 2. 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 3. Mild cystlike change at the proximal lunate suggestive of ulnocarpal impacti on.
[2024-03-10 09:01] VITALS: BP 117/59; PULSE 79; RESP 17; TEMP 36.6; O2SAT 98
[2024-03-10 09:04] VITALS: O2SAT 98
[2024-03-10 09:15] VITALS: O2SAT 99
[2024-03-10 09:17] VITALS: BP 114/55; PULSE 67; RESP 17; O2SAT 96
--- NOTE | 2024-03-10 09:26 | ED.FALL ---
HPI - Fall General Chief Complaint: Fall Stated Complaint: fall Time Seen by Provider: 03/10/24 09:02 Source: patient Mode of arrival: ambulatory Limitations: no limitations History of Present Illness HPI Narrative: Patient is a 64-year-old female who presents the ED with report of a fall. Reports she was taking her dog out this morning when the dog ran after a coyote and caused her to trip over the dog cord. She did not hit her head or lose consciousness. Denies any dizziness or lightheadedness. Complains of pain to her right hand with bruising/swelling, left knee. Had difficulty ambulating due to pain. Took ibuprofen prior to arrival. Denies numbness. Denies neck or back pain, abdominal pain, chest pain, hip pain. Is not on any blood thinners. Related Data Home Medications ?Medication ?Instructions ?Recorded ?Confirmed ?Last Taken ?Type amitriptyline 50 mg tablet 50 mg PO HS 10/14/23 10/14/23 Unknown History promethazine 25 mg tablet 25 mg PO Q6H vomiting 10/14/23 10/14/23 Unknown History Allergies Allergy/AdvReac Type Severity Reaction Status Date / Time oxycodone AdvReac Mild Vomiting Verified 03/10/24 09:07 Review of Systems Review of Systems: All systems reviewed & are unremarkable except as noted in HPI. All systems reviewed & are unremarkable except as noted in HPI and below PMFSH Social History Social History Smoking status: Former smoker Additional smoking assessment comments: currently smokes [place] 2x days every day Alcohol intake: never Substance use: current Substance use type: marijuana Do You Feel Safe in your Home?: Yes Lack of Transportation: No Lack of Food: Never True Current Housing: I Have Housing Concerned About Future Housing: No Difficulty Paying Gas/Electric Bills: No Difficulty Paying for Meds: No Currently Unemployed: No Education: High School Diploma/GED Difficulty w/ Childcare or Family Care: No Spiritual care concerns: No Exam Narrative: GENERAL: Well appearing, obese with BMI of 36.4, non-toxic, in no acute distress. HEAD: Normocephalic, atraumatic. RESPIRATORY: Airway patent, respirations nonlabored. Clear to auscultation bilaterally, no rales, rhonchi, wheezing. CARDIOVASCULAR: Regular rate and rhythm without murmurs, rubs, or gallops. Radial pulses strong and easily palpable. MUSCULOSKELETAL: No gross deformities. Tenderness to palpation along inferior medial left anterior knee. No significant swelling noted. No tenderness over left hip, full range of motion. Mild bruising and swelling noted over distal 5th metacarpal into 5th MCP region, focal tenderness to palpation. Slight decreased flexion ROM of fingers d/t pain/swelling SKIN: Warm, dry, normal color. NEURO: A&O X3. Speech clear. Cranial nerves II-XII grossly intact. Steady gait. No ataxic movements. No focal deficits. PSYCHIATRIC: Appropriate mood and affect. Normal interaction. Course Vital Signs Vital signs: Vital Signs Temperature 97.9 F 03/10/24 09:01 Pulse Rate 79 03/10/24 09:01 Respiratory Rate 17 03/10/24 09:01 Blood Pressure 117/59 L 03/10/24 09:01 Pulse Oximetry 98 03/10/24 09:01 Oxygen Delivery Room Air 03/10/24 09:01 Temperature 97.9 F 03/10/24 09:01 Pulse Rate 67 03/10/24 09:17 Respiratory Rate 17 03/10/24 09:17 Blood Pressure 114/55 L 03/10/24 09:17 Pulse Oximetry 99 03/10/24 09:45 Oxygen Delivery Room Air 03/10/24 09:01 MDM - Fall MDM Narrative Medical decision making narrative: Patient presented to ED status post ground level fall, complaining of pain to left knee and right hand. Denies HI/LOC. Neurovascularly intact. Vital signs stable. In no acute distress. X-ray of left knee showing osteoarthritis changes, no acute fracture. Does show joint effusion. Placed in Lexx bandage. Offered patient crutches however she politely declined. X-ray of right hand showing 5th distal metacarpal fracture, acute on chronic. Patient does report that she has fractured this finger before/boxer's fracture. She was placed in ulnar gutter splint in the ED. Advised she will need follow-up with Ortho/Hand for further evaluation/management of fracture. Will prescribe pain medicine for home use. Feel patient is safe for discharge home at this time. Denies any other areas of pain or concern. Given strict return precautions. She is in agreement plan and feels comfortable going home. Discharged in stable condition. Medical Records Attestation: I reviewed the patient's medical records. Imaging Data Attestation: I personally reviewed and interpreted this imaging study as follows: Radiologist's impression: ITS Impressions Hand X-Ray 03/10/24 09:33 IMPRESSION: 1. Minimal displacement of a recurrent acute on chronic fracture at the head neck junction of the distal right fifth metacarpal which extends to the margin of the articular cortex. 2. 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 3. Mild cystlike change at the proximal lunate suggestive of ulnocarpal impaction. Knee X-Ray 03/10/24 09:41 IMPRESSION: 1. Medial compartment predominant tricompartmental osteoarthritis the left knee. No acute osseous abnormality. 2. Possible small to moderate-sized left knee joint effusion. Discharge Plan Discharge Clinical Impression: Effusion of left knee joint, Fall from ground level Fracture of fifth metacarpal bone of right hand Qualifiers: Encounter type: initial encounter Fracture type: closed Metacarpal location: neck Fracture alignment: displaced Qualified Code(s): S62.336A - Displaced fracture of neck of fifth metacarpal bone, right hand, initial encounter for closed fracture Patient Disposition: Home, Self-Care Condition: Stable Instructions: Antibiotic Form, Hand Fracture (ED), Splint Care (ED), Swollen Knee Joint (ED), Boxer Fracture (ED) Additional Instructions: Continue Tylenol and Ibuprofen as needed for pain. [place] as needed for more severe pain. Recommend frequent icing to areas of pain. Utilize Lexx bandage for compression and support. Wear splint until seen by Hand surgery. You will need to call office to make an appointment for further management of fracture. Return to the ED if you experience worsening or severe pain, recurrent injury, numbness, severe swelling, or any other symptoms of concern. Patient Language: Icelandic Prescriptions: New hydrocodone-acetaminophen 5-325 mg tablet 1 tablet PO Q6H PRN (Reason: pain) Qty: 20 0RF No Action amitriptyline 50 mg tablet 50 mg PO HS promethazine 25 mg tablet 25 mg PO Q6H metoprolol succinate 50 mg Tablet Extended Release 24 Hr 50 mg PO QAM Qty: 30 2RF amlodipine [Norvasc] 5 mg Tablet 5 mg PO DAILY Qty: 30 2RF ondansetron 4 mg tablet,disintegrating 4 mg PO Q8H PRN (Reason: nausea and vomiting) Qty: 14 0RF pantoprazole [Protonix] 40 mg tablet,delayed release (DR/EC) 40 mg PO QAM Qty: 14 0RF Follow-up/Referrals: Preston Winter MD [Physician] - (HAND/PLASTIC SURGERY) Daniel,MD Rylan [Non-Staff] - Time of Disposition: 10:27
[2024-03-10] MEDS: HYDROcodone/acetaminophen (*CRX) 5-325 MG TABLET 1 TAB PO (09:32)
[2024-03-10 09:35] VITALS: O2SAT 95
[2024-03-10 09:45] VITALS: O2SAT 99
== END 2024-03-10 10:46 | disposition home or self-care (01) ==
PROVIDERS: Emergency Provider Physician Assistant
DX: S62.336A Displaced fracture of neck of fifth metacarpal bone, right hand, initial encounter for closed fracture (principal); M25.462 Effusion, left knee; Z87.891 Personal history of nicotine dependence; W18.09XA Striking against other object with subsequent fall, initial encounter
CPT/HCPCS: 29125; 73130; 73564; 99284; A9270